=== PATIENT | male | born 1970 | race Caucasian/White ===

== ENCOUNTER → 2017-08-01 10:22 | Outpatient (CLI) | payer OTHER, SELFPAY ==
[2017-08-01 11:02] LABS: Add Manual Diff / Slide Review NO; Eosinophils Percent Auto 5.8 % (2-4); Hemoglobin 15.7 g/dL (13.5-17.5); Lymphocytes Percent Auto 26.9 % (25-40); Mean Corpuscular HGB Conc 34.1 % (30-36); Mean Corpuscular Hemoglobin 30.3 PG (26-34); Mean Corpuscular Volume 88.9 fL (80-100); Monocytes Percent Auto 7.7 % (3-14); Neutrophils Absolute Auto 5300 /uL (3000-5900); Neutrophils Percent Auto 58.6 % (50-75); Platelet Count 310 X10^3/uL (150-400); Red Blood Cell Count 5.18 X10^6/uL (4.5-5.9); Red Cell Distribution Width 13.5 % (11.6-14.8); White Blood Cell Count 9.1 X10^3/uL (4.5-11.0)
[2017-08-01 11:41] LABS: Creatinine Urine Random 141.1 mg/dL
[2017-08-01 11:43] LABS: Alanine Aminotransferase 30 IU/L (21-72); Albumin 4.2 g/dL (3.5-5.0); Albumin Globulin Ratio 1.2 (1.0-2.8); Alkaline Phosphatase 138 U/L (38-126); Aspartate Aminotransferase 21 IU/L (17-59); BUN Creatinine Ratio 17.5 (6-22); Bilirubin Total 0.5 mg/dL (0.2-1.3); Blood Urea Nitrogen 14 mg/dL (9-20); Calcium 9.6 mg/dL (8.4-10.2); Carbon Dioxide 28 mmol/L (22-32); Chloride 101 mmol/L (98-107); Cholesterol 223 mg/dL (140-199); Estimated Glomerular Filt Rate > 60.0 mL/min (>60); Globulin 3.6 g/dL (1.7-4.1); Glucose 116 mg/dL (70-100); HDL Cholesterol 29 mg/dL (40-60); HEMOLYSIS < 15 (0-50); LDL Cholesterol Calculated 121 mg/dL (<100); Potassium 4.7 mmol/L (3.4-5.1); Sodium 143 mmol/L (137-145); Total Protein 7.8 g/dL (6.3-8.2); Triglycerides 364 mg/dL (35-150)
[2017-08-01 11:46] LABS: Microalbumi Creatinin Ratio Ur 6.3 ug/mg CR (<30); Microalbumin Urine Random 0.9 mg/dL (0-1.6)
== END ==
PROVIDERS: PCP Family Medicine; Visit Provider Nurse Practitioner Family
DX: I10 Essential (primary) hypertension (principal)
CPT/HCPCS: 36415; 80053; 80061; 82043; 82570; 85025

== ENCOUNTER 2018-03-30 12:53 | Emergency (ER) | payer OTHER, SELFPAY ==
[2018-03-30 12:55] VITALS: BP 176/109; PULSE 88; RESP 14; TEMP 36.2; O2SAT 98
[2018-03-30 13:02] VITALS: PULSE 88
--- NOTE | 2018-03-30 13:03 | ED.LOWEXIN ---
HPI - Extremity Injury (Lower) <Shahla Ferrrea PA-C - Last Filed: 03/30/18 21:33> General Chief Complaint: Extremity Injury, Lower Stated Complaint: LEFT ANKLE INJURY Time Seen by Provider: 03/30/18 12:58 Source: patient Mode of arrival: ambulatory Limitations: no limitations History of Present Illness HPI Narrative: this 48-year-old male slipped and fell on the ice while he was working last night. He states that he twisted his left ankle sideways and fell onto his left side, also hitting his wrist. He denies any other injury, head contusion or LOC. States he fell hard, and though able to bear weight having significant pain with walking today. He states his wrist is sore but not as much as the ankle. He has not taken any medicines at home, thought he should have this evaluated since not better today. Related Data Previous Rx's Medication Instructions Recorded albuterol sulfate HFA 90 2 puff INHALATION Q4HP PRN #1 gm 11/06/17 mcg/actuation aerosol inhaler budesonide-formoterol HFA 160 2 puff INHALATION BID #10.2 gram 11/06/17 mcg-4.5 mcg/actuation aerosol inhaler lisinopril 10 mg tablet 10 mg PO DAILY #30 tab 11/06/17 hydrocortisone 2.5 % topical cream 1 applictn TOP BID #30 gram 11/28/17 Allergies Allergy/AdvReac Type Severity Reaction Status Date / Time tomato [TOMATO] Allergy Intermediate Verified 11/28/17 10:20 NUTS Allergy Intermediate Uncoded 11/28/17 10:20 Review of Systems <Shahla Ferrera PA-C - Last Filed: 03/30/18 21:33> Review of Systems ROS Unobtainable: All systems reviewed & are unremarkable except as noted in HPI and below PFSH <Shahla Ferrera PA-C - Last Filed: 03/30/18 21:33> Medical History Mild persistent asthma without complication (05/06/15) Essential hypertension with goal blood pressure less than 140/90 (05/06/15) Surgical History No pertinent past surgical history (Chronic) Social History Smoking Status: Never smoker alcohol intake: current (Occasional) Social History Smoking Status: Never smoker alcohol intake: current (Occasional) Exam <Shahla Ferrera PA-C - Last Filed: 03/30/18 21:33> Narrative Exam Narrative: GENERAL APPEARANCE: Patient sitting comfortably, in no distress. LUNGS: Clear to auscultation bilaterally. HEART: Rate and rhythm regular without murmur, normal S1 and S2, no S3 or S4. MUSCULOSKELETAL : left hand and wrist no effusion. No tenderness over the elbow, forearm, hand or fingers where he has full active range of motion. Mild tenderness over the lateral wrist joint. Left ankle there is trace effusion. Mild tenderness over the Achilles which is intact by palpation. Most tender over the anterior lateral ankle just anterior to the lateral malleolus. No point tenderness elsewhere. Full range of motion nonweightbearing with tenderness at endpoints. No tenderness over the metatarsals or toes. Normal plantar flexion and dorsiflexion of the toes with strength intact against resistance NEUROVASCULAR: Fingers and toes are warm and pink with brisk cap refill, sensation is grossly intact throughout the left upper and lower extremities Initial Vital Signs Initial Vital Signs: Vital Signs Temperature 97.2 F L 03/30/18 12:55 Pulse Rate 88 03/30/18 12:55 Respiratory Rate 14 03/30/18 12:55 Blood Pressure 176/109 H 03/30/18 12:55 Pulse Oximetry 98 03/30/18 12:55 <Laura Warren DO - Last Filed: 03/31/18 07:24> Initial Vital Signs Initial Vital Signs: Vital Signs Temperature 97.2 F L 03/30/18 12:55 Pulse Rate 88 03/30/18 12:55 Respiratory Rate 14 03/30/18 12:55 Blood Pressure 176/109 H 03/30/18 12:55 Pulse Oximetry 98 03/30/18 12:55 Course <Shahla Ferrera PA-C - Last Filed: 03/30/18 21:33> Orders Ordered: ED Orders 03/30/18 13:02 XR ankle LT min 3V Stat XR wrist LT 2V Stat Vital Signs - 8 hr 03/30/18 14:06 Pulse Rate 86 Respiratory Rate 16 Blood Pressure [Left Arm] 156/96 H Pulse Oximetry 99 <Laura Warren DO - Last Filed: 03/31/18 07:24> Orders Ordered: ED Orders 03/30/18 13:02 XR ankle LT min 3V Stat XR wrist LT 2V Stat Vital Signs - 8 hr 03/30/18 14:06 Pulse Rate 86 Respiratory Rate 16 Blood Pressure [Left Arm] 156/96 H Pulse Oximetry 99 MDM - Extremity Injury (Lower) <Shahla Ferrera PA-C - Last Filed: 03/30/18 21:33> Imaging Data wrist: Radiologist's impression: [address] [address] XRay Report Signed Patient: Nicholas White [facility]#: [id number] : 1970Acct:[id number] Age/Sex: 48 / MDate of Service: 03/30/18 Loc: ED Accession Number: [id number] Procedure: XR wrist LT 2V Ordering Provider: Shahla Ferrera P.A-C PROCEDURE: XR WRIST LT 2V INDICATIONS: fall on wrist last night. TECHNIQUE: 2 views of the wrist were acquired. COMPARISON: None. FINDINGS: Bones: No fractures or dislocations. No suspicious bony lesions. Soft tissues: No suspicious soft tissue calcifications. IMPRESSION: No fracture Dictated by: Young Freitas M.D. on 03/30/2018 at 13:37 Approved by: Young Freitas M.D. on 03/30/2018 at 13:38 ankle: Radiologist's impression: [address] [address] XRay Report Signed Patient: Nicholas White [facility]#: [id number] : 1970Acct:[id number] Age/Sex: 48 / MDate of Service: 03/30/18 Loc: ED Accession Number: [id number] Procedure: XR ankle LT min 3V Ordering Provider: Shahla Ferrera P.A-C PROCEDURE: XR ANKLE LT MIN 3V INDICATIONS: fall on ice last night. TECHNIQUE: 3 views of the ankle were acquired. COMPARISON: [facility], , ANKLE 3 VIEWS LEFT, 01/21/2011, 16:53. FINDINGS: Bones: No fractures or dislocations. Ankle mortise is normally aligned. No suspicious bony lesions. Plantar calcaneal spur. Chronic corticated ossicle projects at the lateral malleolar tip unchanged since 2010. Soft tissues: No tibiotalar joint effusion. Achilles tendon appears normal. IMPRESSION: No fracture Dictated by: Young Freitas M.D. on 03/30/2018 at 13:36 Approved by: Young Freitas M.D. on 03/30/2018 at 13:37 Discharge Plan Departure Patient Disposition: Home Clinical Impression: Left wrist sprain Qualifiers: Encounter type: initial encounter Qualified Code(s): S63.502A - Unspecified sprain of left wrist, initial encounter Left ankle sprain Qualifiers: Encounter type: initial encounter Involved ligament of ankle: unspecified ligament Qualified Code(s): S93.402A - Sprain of unspecified ligament of left ankle, initial encounter Discharge Date/Time: 03/30/18 14:30 Interventions: ED Discharge Assessment Last Done: 03/30/18 14:30 Instructions: DI for Wrist Sprain, DI for Ankle Sprain Activity Restrictions/Additional Instructions: Please take 1 Aleve twice daily to help with pain and swelling, or you can also use ibuprofen 400 mg every 8 hr. You can add Tylenol as needed. Please use the ankle splint whenever you are weight-bearing. Gentle walking is okay, but do not overuse for long periods. Return if you have any acutely worsening symptoms, otherwise you should follow-up with your PCP next week to reassess your progress as you may need further treatment, i.e. physical therapy, or you may need repeat x-rays if not getting better. 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 Prescriptions: No Action albuterol sulfate [Proventil HFA] 90 mcg/actuation HFA aerosol inhaler 2 puff INHALATION Q4HP PRN (Reason: shortness of breath or wheezing) Qty: 1 RF: 6 budesonide-formoterol [Symbicort] 160-4.5 mcg/actuation HFA aerosol inhaler 2 puff INHALATION BID Qty: 10.2 RF: 0 lisinopril 10 mg tablet 10 mg PO DAILY Qty: 30 RF: 0 hydrocortisone 2.5 % cream 1 applictn TOP BID Qty: 30 RF: 0 Referrals: Jorge Lunsford MD [Primary Care Provider] - Stand Alone Forms: Work Release Note <Laura Warren DO - Last Filed: 03/31/18 07:24> Cosign ED Attending Cosignature Attestation: I was immediately available in the department for consultation. This documentation has been reviewed and I agree with assessment and plan. Supervised by Laura Warren DO
[2018-03-30 13:06] VITALS: PULSE 88
--- NOTE | 2018-03-30 13:07 | PC.NURSE ---
Left wrist w/o s/s of trauma at this time.
--- NOTE | 2018-03-30 13:17 | ED_ITS ---
HPI - Extremity Injury (Lower) <Shahla Ferrera PA-C - Last Filed: 03/30/18 21:33> General Chief Complaint: Extremity Injury, Lower Stated Complaint: LEFT ANKLE INJURY Time Seen by Provider: 03/30/18 12:58 Source: patient Mode of arrival: ambulatory Limitations: no limitations History of Present Illness HPI Narrative: this 48-year-old male slipped and fell on the ice while he was working last night. He states that he twisted his left ankle sideways and fell onto his left side, also hitting his wrist. He denies any other injury, head contusion or LOC. States he fell hard, and though able to bear weight having significant pain with walking today. He states his wrist is sore but not as much as the ankle. He has not taken any medicines at home, thought he should have this evaluated since not better today. Related Data Previous Rx's Medication Instructions Recorded albuterol sulfate HFA 90 2 puff INHALATION Q4HP PRN #1 gm 11/06/17 mcg/actuation aerosol inhaler budesonide-formoterol HFA 160 2 puff INHALATION BID #10.2 gram 11/06/17 mcg-4.5 mcg/actuation aerosol inhaler lisinopril 10 mg tablet 10 mg PO DAILY #30 tab 11/06/17 hydrocortisone 2.5 % topical cream 1 applictn TOP BID #30 gram 11/28/17 Allergies Allergy/AdvReac Type Severity Reaction Status Date / Time tomato [TOMATO] Allergy Intermediate Verified 11/28/17 10:20 NUTS Allergy Intermediate Uncoded 11/28/17 10:20 Review of Systems <Shahla Ferrera PA-C - Last Filed: 03/30/18 21:33> Review of Systems ROS Unobtainable: All systems reviewed & are unremarkable except as noted in HPI and below PFSH <Shahla Ferrera PA-C - Last Filed: 03/30/18 21:33> Medical History Mild persistent asthma without complication (05/06/15) Essential hypertension with goal blood pressure less than 140/90 (05/06/15) Surgical History No pertinent past surgical history (Chronic) Social History Smoking Status: Never smoker alcohol intake: current (Occasional) Social History Smoking Status: Never smoker alcohol intake: current (Occasional) Exam <Shahla Ferrera PA-C - Last Filed: 03/30/18 21:33> Narrative Exam Narrative: GENERAL APPEARANCE: Patient sitting comfortably, in no distress. LUNGS: Clear to auscultation bilaterally. HEART: Rate and rhythm regular without murmur, normal S1 and S2, no S3 or S4. MUSCULOSKELETAL : left hand and wrist no effusion. No tenderness over the elbow, forearm, hand or fingers where he has full active range of motion. Mild tenderness over the lateral wrist joint. Left ankle there is trace effusion. Mild tenderness over the Achilles which is intact by palpation. Most tender over the anterior lateral ankle just anterior to the lateral malleolus. No point tenderness elsewhere. Full range of motion nonweightbearing with tenderness at endpoints. No tenderness over the metatarsals or toes. Normal plantar flexion and dorsiflexion of the toes with strength intact against resistance NEUROVASCULAR: Fingers and toes are warm and pink with brisk cap refill, sensation is grossly intact throughout the left upper and lower extremities Initial Vital Signs Initial Vital Signs: Vital Signs Temperature 97.2 F L 03/30/18 12:55 Pulse Rate 88 03/30/18 12:55 Respiratory Rate 14 03/30/18 12:55 Blood Pressure 176/109 H 03/30/18 12:55 Pulse Oximetry 98 03/30/18 12:55 <Laura Warren DO - Last Filed: 03/31/18 07:24> Initial Vital Signs Initial Vital Signs: Vital Signs Temperature 97.2 F L 03/30/18 12:55 Pulse Rate 88 03/30/18 12:55 Respiratory Rate 14 03/30/18 12:55 Blood Pressure 176/109 H 03/30/18 12:55 Pulse Oximetry 98 03/30/18 12:55 Course <Shahla Ferrera PA-C - Last Filed: 03/30/18 21:33> Orders Ordered: ED Orders 03/30/18 13:02 XR ankle LT min 3V Stat XR wrist LT 2V Stat Vital Signs - 8 hr 03/30/18 14:06 Pulse Rate 86 Respiratory Rate 16 Blood Pressure [Left Arm] 156/96 H Pulse Oximetry 99 <Laura Warren DO - Last Filed: 03/31/18 07:24> Orders Ordered: ED Orders 03/30/18 13:02 XR ankle LT min 3V Stat XR wrist LT 2V Stat Vital Signs - 8 hr 03/30/18 14:06 Pulse Rate 86 Respiratory Rate 16 Blood Pressure [Left Arm] 156/96 H Pulse Oximetry 99 MDM - Extremity Injury (Lower) <Shahla Ferrera PA-C - Last Filed: 03/30/18 21:33> Imaging Data wrist: Radiologist's impression: [address] [address] XRay Report Signed Patient: Nicholas White [facility]#: [id number] : 1970Acct:[id number] Age/Sex: 48 / MDate of Service: 03/30/18 Loc: ED Accession Number: [id number] Procedure: XR wrist LT 2V Ordering Provider: Shahla Ferrera P.A-C PROCEDURE: XR WRIST LT 2V INDICATIONS: fall on wrist last night. TECHNIQUE: 2 views of the wrist were acquired. COMPARISON: None. FINDINGS: Bones: No fractures or dislocations. No suspicious bony lesions. Soft tissues: No suspicious soft tissue calcifications. IMPRESSION: No fracture Dictated by: Young Freitas M.D. on 03/30/2018 at 13:37 Approved by: Young Freitas M.D. on 03/30/2018 at 13:38 ankle: Radiologist's impression: [address] [address] XRay Report Signed Patient: Nicholas White [facility]#: [id number] : 1970Acct:[id number] Age/Sex: 48 / MDate of Service: 03/30/18 Loc: ED Accession Number: [id number] Procedure: XR ankle LT min 3V Ordering Provider: Shahla Ferrera P.A-C PROCEDURE: XR ANKLE LT MIN 3V INDICATIONS: fall on ice last night. TECHNIQUE: 3 views of the ankle were acquired. COMPARISON: [facility], , ANKLE 3 VIEWS LEFT, 01/21/2011, 16:53. FINDINGS: Bones: No fractures or dislocations. Ankle mortise is normally aligned. No suspicious bony lesions. Plantar calcaneal spur. Chronic corticated ossicle projects at the lateral malleolar tip unchanged since 2010. Soft tissues: No tibiotalar joint effusion. Achilles tendon appears normal. IMPRESSION: No fracture Dictated by: Young Freitas M.D. on 03/30/2018 at 13:36 Approved by: Young Freitas M.D. on 03/30/2018 at 13:37 Discharge Plan Departure Patient Disposition: Home Clinical Impression: Left wrist sprain Qualifiers: Encounter type: initial encounter Qualified Code(s): S63.502A - Unspecified sprain of left wrist, initial encounter Left ankle sprain Qualifiers: Encounter type: initial encounter Involved ligament of ankle: unspecified ligament Qualified Code(s): S93.402A - Sprain of unspecified ligament of left ankle, initial encounter Discharge Date/Time: 03/30/18 14:30 Interventions: ED Discharge Assessment Last Done: 03/30/18 14:30 Instructions: DI for Wrist Sprain, DI for Ankle Sprain Activity Restrictions/Additional Instructions: Please take 1 Aleve twice daily to help with pain and swelling, or you can also use ibuprofen 400 mg every 8 hr. You can add Tylenol as needed. Please use the ankle splint whenever you are weight-bearing. Gentle walking is okay, but do not overuse for long periods. Return if you have any acutely worsening symptoms, otherwise you should follow-up with your PCP next week to reassess your progress as you may need further treatment, i.e. physical therapy, or you may need repeat x-rays if not getting better. 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 Prescriptions: No Action albuterol sulfate [Proventil HFA] 90 mcg/actuation HFA aerosol inhaler 2 puff INHALATION Q4HP PRN (Reason: shortness of breath or wheezing) Qty: 1 R F: 6 budesonide-formoterol [Symbicort] 160-4.5 mcg/actuation HFA aerosol inhaler 2 puff INHALATION BID Qty: 10.2 RF: 0 lisinopril 10 mg tablet 10 mg PO DAILY Qty: 30 RF: 0 hydrocortisone 2.5 % cream 1 applictn TOP BID Qty: 30 RF: 0 Referrals: Jorge Lunsford MD [Primary Care Provider] - Stand Alone Forms: Work Release Note <Laura Warren DO - Last Filed: 03/31/18 07:24> Cosign ED Attending Cosignature Attestation: I was immediately available in the department for consultation. This documentation has been reviewed and I agree with assessment and plan. Supervised by Laura Warren DO
[2018-03-30 14:06] VITALS: BP 156/96; PULSE 86; RESP 16; O2SAT 99
--- NOTE | 2018-03-30 14:06 | PC.NURSE ---
pt report, with partial wt bearings. fell and rolled last night.
== END 2018-03-30 14:30 | disposition home or self-care (01) ==
PROVIDERS: Emergency Provider Internal Medicine; PCP Student in an Organized Health Care Education/Training Program
DX: S63.502A Unspecified sprain of left wrist, initial encounter (principal); S93.402A Sprain of unspecified ligament of left ankle, initial encounter; W01.0XXA Fall on same level from slipping, tripping and stumbling without subsequent striking against object, initial encounter; Y99.0 Civilian activity done for income or pay
CPT/HCPCS: 29540; 73100; 73610; 99282; 99283

== ENCOUNTER 2018-04-17 10:42 | Emergency (ER) | payer OTHER, SELFPAY ==
[2018-04-17 10:47] VITALS: BP 171/103; PULSE 72; RESP 20; TEMP 36.4; O2SAT 98
--- NOTE | 2018-04-17 11:30 | ED_ITS ---
HPI - Extremity Injury (Lower) General Chief Complaint: Extremity Injury, Lower Stated Complaint: SWELLING ON L FOOT,DISCOLORATION,TWINGES Time Seen by Provider: 04/17/18 11:11 Source: patient Mode of arrival: ambulatory Limitations: no limitations History of Present Illness HPI Narrative: Patient is a 48-year-old male presenting with left ankle pain. He said he slipped on the ice on 03/29/2017. He has an x-ray at that time however he continues to have swelling now has some numbness and tingling. He was wearing an air splint but he says that was actually very uncomfortable. He can continue to ice it. He has not noticed much improvement. Onset (ago): day(s) () Place: work Treatments prior to arrival: cold therapy Related Data Home Medications Medication Instructions Recorded Confirmed albuterol sulfate [ProAir HFA] 2 puff INHALATION Q4H PRN 04/17/18 04/17/18 Previous Rx's Medication Instructions Recorded budesonide-formoterol HFA 160 2 puff INHALATION BID #10.2 gram 11/06/17 mcg-4.5 mcg/actuation aerosol inhaler lisinopril 10 mg tablet 10 mg PO DAILY #30 tab 11/06/17 Allergies Allergy/AdvReac Type Severity Reaction Status Date / Time tomato [TOMATO] Allergy Intermediate Verified 11/28/17 10:20 NUTS Allergy Intermediate Uncoded 11/28/17 10:20 Review of Systems Review of Systems GENERAL: Denies chills,fever HEENT: Denies throat pain RESPIRATORY: Denies dyspnea, cough, wheezing CARDIOVASCULAR: Denies chest pain, palpitations GASTROINTESTINAL: Denies nausea, vomiting MUSCULOSKELETAL: See HPI SKIN: No rash, no laceration, no pruritus NEUROLOGIC: Denies weakness, dizziness, headache, numbness 8 point review of systems is negative except for those stated above and HPI PFSH Medical History Mild persistent asthma without complication (05/06/15) Essential hypertension with goal blood pressure less than 140/90 (05/06/15) Surgical History No pertinent past surgical history (Chronic) Social History Smoking Status: Never smoker alcohol intake: current (Occasional) Social History Smoking Status: Never smoker alcohol intake: current (Occasional) Exam Initial Vital Signs Initial Vital Signs: Vital Signs Temperature 97.6 F 04/17/18 10:47 Pulse Rate 72 04/17/18 10:47 Respiratory Rate 20 04/17/18 10:47 Blood Pressure 171/103 H 04/17/18 10:47 Pulse Oximetry 98 04/17/18 10:47 GENERAL: Well-appearing male in no acute distress CARDIOVASCULAR: peripheral pulses in tact, cap refill <2 sec RESPIRATORY: No respiratory distress, speaks in full sentences without dif ficulty EXTREMITIES: Normal range of motion, no clubbing or edema. Neurovascularly intact left ankle: Swelling noted pain with Burris and plantar flexion. Distal pedal pulses intact. No gross bony deformities. NEUROLOGICAL: Cranial nerves II through XII grossly intact. Normal gait and speech. SKIN: Warm, dry, no petechiae, no rashes or lesions. Course Orders Ordered: ED Orders 04/17/18 11:38 XR ankle LT min 3V Stat Vital Signs - 8 hr 04/17/18 10:47 04/17/18 13:54 Temperature 97.6 F Pulse Rate 72 75 Respiratory Rate 20 17 Blood Pressure 171/103 H Blood Pressure [Left Arm] 166/102 H Pulse Oximetry 98 99 MDM - Extremity Injury (Lower) Imaging Data left ankle XR: Radiologist's impression: PROCEDURE: XR ANKLE LT MIN 3V INDICATIONS: persistant pain injury 03/29 TECHNIQUE: 3 views of the ankle were acquired. COMPARISON: [facility], , ANKLE 3 VIEWS LEFT, 01/21/2011, 16:53. [facility], , XR ANKLE LT MIN 3V, 03/30/2018, 13:14. FINDINGS: Bones: There is a tiny bony right inferior to the medial malleolus which can potentially represents an avulsion off the talus. This is not definite. There is medial and lateral soft tissue swelling. No other fractures or dislocations. Soft tissues: No tibiotalar joint effusion. Achilles tendon appears normal. IMPRESSION: Question tiny avulsion off the talus. Medial and lateral ankle sprain. Dictated by: Giovanni Jackson M.D. on 04/17/2018 at 12:01 MDM Narrative Medical decision making narrative: I Did discuss case briefly with Dr. [facility] on-call. Her agrees with walking boot follow-up out patient. May weight bear as tolerated. Discharge Plan Departure Patient Disposition: Home Clinical Impression: Avulsion fracture of talus Qualifiers: Encounter type: initial encounter Fracture type: closed Fracture alignment: nondisplaced Laterality: left Qualified Code(s): S92.155A - Nondisplaced avulsion fracture (chip fracture) of left talus, initial encounter for closed fracture Discharge Date/Time: 04/17/18 13:58 Interventions: ED Discharge Assessment Last Done: 04/17/18 13:58 Instructions: DI for Fracture Activity Restrictions/Additional Instructions: *You have been diagnosed with avulsion fracture of talus *What to do: wear walking boot Elevate, ice. Follow-up with Orthopedics. I anticipate this will heal without difficulty.May require outpatient MRI as scheduled with her primary care provider. *Continue to take medications as directed Ibuprofen 600 mg every 6-8 hours if needed for pain or swelling for 1 week *Follow up with your primary care provider in 2-3 days *Return to ER if you should have numbness, tingling orany new, worsening or concerning symptoms Prescriptions: No Action budesonide-formoterol [Symbicort] 160-4.5 mcg/actuation HFA aerosol inhaler 2 puff INHALATION BID Qty: 10.2 RF: 0 lisinopril 10 mg tablet 10 mg PO DAILY Qty: 30 RF: 0 ProAir HFA 90 mcg/actuation HFA aerosol inhaler 2 puff Inhalation Q4H PRN (Reason: Shortness Of Breath Or Wheezing) RF: 0 Referrals: [facility] [Outside]
--- NOTE | 2018-04-17 11:38 | DI.RAD.S_ITS ---
PROCEDURE: XR ANKLE LT MIN 3V INDICATIONS: persistant pain injury 03/29 TECHNIQUE: 3 views of the ankle were acquired. COMPARISON: [facility], CR, ANKLE 3 VIEWS LEFT, 01/21/2011, 16:53. [facility], CR, XR ANKLE LT MIN 3V, 03/30/2018, 13:14. FINDINGS: Bones: There is a tiny bony right inferior to the medial malleolus which can potentially represents an avulsion off the talus. This is not definite. There is medial and lateral soft tissue swelling. No other fractures or dislocations. Soft tissues: No tibiotalar joint effusion. Achilles tendon appears normal. IMPRESSION: Question tiny avulsion off the talus. Medial and lateral ankle sprain. Dictated by: Giovanni Jackson M.D. on 04/17/2018 at 12:01 Approved by: Giovanni Jackson M.D. on 04/17/2018 at 12:24
[2018-04-17 13:54] VITALS: BP 166/102; PULSE 75; RESP 17; O2SAT 99
== END 2018-04-17 13:58 | disposition home or self-care (01) ==
PROVIDERS: Emergency Provider Emergency Medicine
DX: S92.155A Nondisplaced avulsion fracture (chip fracture) of left talus, initial encounter for closed fracture (principal); W01.0XXA Fall on same level from slipping, tripping and stumbling without subsequent striking against object, initial encounter
CPT/HCPCS: 29580; 73610; 99282; 99283

== ENCOUNTER 2018-08-05 20:25 | Emergency (ER) | payer OTHER, SELFPAY ==
[2018-08-05 20:50] VITALS: BP 193/106; PULSE 82; RESP 18; TEMP 36.9; O2SAT 98; BMI 42.3
--- NOTE | 2018-08-05 20:57 | DI.RAD.S_ITS ---
PROCEDURE: XR RIBS LT MIN 3V W CXR1V INDICATIONS: Posterior rib pain TECHNIQUE: 2 views of the left ribs were acquired, along with a single view chest. COMPARISON: None. FINDINGS: Surgical changes and devices: None. Bones and chest wall: No fractures or dislocations. No suspicious bony lesions. Overlying soft tissues appear unremarkable. Lungs and pleura: No pleural effusions or pneumothorax. Lungs appear clear. Mediastinum: Mediastinal contours appear normal. Heart size is normal. IMPRESSION: No rib fracture identified. No acute cardiopulmonary disease. Dictated by: Young Freitas M.D. on 08/05/2018 at 21:46 Approved by: Young Freitas M.D. on 08/05/2018 at 21:48
--- NOTE | 2018-08-05 21:17 | ED.BACK ---
HPI - Back Pain/Injury General Chief Complaint: Back Pain/Injury Stated Complaint: BACK PAIN Time Seen by Provider: 08/05/18 21:13 Source: patient Mode of arrival: ambulatory Limitations: no limitations History of Present Illness HPI Narrative: 48-year-old male here for evaluation of left-sided thoracic back pain. Patient states that it started within the past day or so. Has never had pain like this in the past. States that he was moving some heavy objects every does not remember a specific incident where the symptoms started. No fevers. States that it does hurt to the point of causing him to be somewhat short of breath. It is reproducible with touching and movement. He states that it does feel similar to when he had a rib fracture on the left side in the past. Related Data Home Medications Medication Instructions Recorded Confirmed albuterol sulfate [ProAir HFA] 2 puff INHALATION Q4H PRN 04/17/18 04/17/18 Previous Rx's Medication Instructions Recorded budesonide-formoterol HFA 160 2 puff INHALATION BID #10.2 gram 11/06/17 mcg-4.5 mcg/actuation aerosol inhaler lisinopril 10 mg tablet 10 mg PO DAILY #30 tab 11/06/17 cyclobenzaprine 10 mg PO TID PRN #12 tab 08/05/18 lisinopril 10 mg PO DAILY #30 tab 08/05/18 Allergies Allergy/AdvReac Type Severity Reaction Status Date / Time tomato [TOMATO] Allergy Intermediate Verified 11/28/17 10:20 NUTS Allergy Intermediate Uncoded 11/28/17 10:20 Review of Systems Constitutional Denies fever(s) Cardiovascular Denies chest pain Respiratory Reports pain on inspiration Gastrointestinal Gastrointestinal: Denies abdominal pain Musculoskeletal Reports back pain, Denies atrophy and Denies arthralgias Integumentary/Breasts Denies rash Hematologic/Lymphatic Denies easy bleeding and Denies easy bruising [facility] Medical History Mild persistent asthma without complication (05/06/15) Essential hypertension with goal blood pressure less than 140/90 (05/06/15) Surgical History (Updated 03/30/18 @ 13:15 by Shahla Ferrera PA-C) No pertinent past surgical history (Chronic) Social History Smoking Status: Never smoker alcohol intake: current (Occasional) Social History Smoking Status: Never smoker alcohol intake: current (Occasional) Exam Initial Vital Signs Initial Vital Signs: Vital Signs Temperature 98.4 F 08/05/18 20:50 Pulse Rate 82 08/05/18 20:50 Respiratory Rate 18 08/05/18 20:50 Blood Pressure 193/106 H 08/05/18 20:50 Pulse Oximetry 98 08/05/18 20:50 Const General: cooperative, well developed, well groomed and No acute distress Orientation: alert and awake HENPR Head: normal to inspection and normocephalic Resp Effort & Inspection: normal respiratory effort Auscultation: clear to auscultation bilaterally Cardio Rate: regular rate Rhythm: regular rhythm Back/Spine/Pelvis Cervical Spine: No cervical spinal tenderness Thoracic/Lumbar Spine: paraspinal tenderness (Left-sided), thoraco-lumbar spasm (Left sign), No thoracic spinal tenderness and No lumbar spinal tenderness Skin Lesions: no lesions Rashes: no rashes Neuro General: alert and awake Cognition: normal cognition Speech: speech normal Gait: normal gait Motor: muscle tone normal throughout Sensory Exam: no sensory deficits noted Extrem General: normal to inspection and capillary refill normal Psych Appearance: grossly normal and well kempt Scores GCS Melquiades coma scale eye opening: Spontaneous [place] coma scale verbal response: Orientated Melquiades coma scale motor response: Obey commands Melquiades coma scale total score: 15 Course Orders Ordered: ED Orders 08/05/18 20:57 XR ribs LT min 3V w CXR1V Stat Discontinued Medications Cyclobenzaprine HCl (Flexeril 10 Mg Prepack) 1 bottle MISC SEEINSTR ONE Stop: 08/05/18 21:55 Last Admin: 08/05/18 22:06 Dose: 1 bottle Ketorolac Tromethamine (Toradol) 30 mg IM NOW ONE Stop: 08/05/18 21:19 Last Admin: 08/05/18 21:47 Dose: 30 mg Vital Signs - 8 hr 08/05/18 20:50 08/05/18 22:03 Temperature 98.4 F Pulse Rate 82 82 Respiratory Rate 18 18 Blood Pressure 193/106 H 192/114 H Pulse Oximetry 98 99 MDM - Back Pain/Injury Imaging Data X-ray ribs: Radiologist's impression: [address] [address] XRay Report Signed Patient: Nicholas White [facility]#: [id number] : 1970Acct:[id number] Age/Sex: 48 / MDate of Service: 08/05/18 Loc: ED Accession Number: [id number] Procedure: XR ribs LT min 3V w CXR1V Ordering Provider: Abe Gómez D.O. PROCEDURE: XR RIBS LT MIN 3V W CXR1V INDICATIONS: Posterior rib pain TECHNIQUE: 2 views of the left ribs were acquired, along with a single view chest. COMPARISON: None. FINDINGS: Surgical changes and devices: None. Bones and chest wall: No fractures or dislocations. No suspicious bony lesions. Overlying soft tissues appear unremarkable. Lungs and pleura: No pleural effusions or pneumothorax. Lungs appear clear. Mediastinum: Mediastinal contours appear normal. Heart size is normal. IMPRESSION: No rib fracture identified. No acute cardiopulmonary disease. Dictated by: Young Freitas M.D. on 08/05/2018 at 21:46 Approved by: Young Freitas M.D. on 08/05/2018 at 21:48 MDM Narrative Medical decision making narrative: Fractures on the x-ray. He does have left-sided paraspinal tenderness in the thoracic area. He is not short of breath. It is reproducible with palpation. Low suspicion for PE or ACS. Do suspect musculoskeletal etiology. He was given Toradol here in the emergency department. We did discuss the use of muscle relaxers. He was given return precautions and follow-up instructions. He expressed understanding and agreement with plan. Discharge Plan Departure Patient Disposition: Home Clinical Impression: Thoracic back pain Qualifiers: Chronicity: acute Back pain laterality: left Qualified Code(s): M54.6 - Pain in thoracic spine Discharge Date/Time: 08/05/18 22:03 Interventions: ED Discharge Assessment Last Done: 08/05/18 22:03 Instructions: DI for Back Strain or Sprain Activity Restrictions/Additional Instructions: Recommend you do not take any anti-inflammatories until tomorrow afternoon. Take the other medications as directed. You can also use heat and massage and light stretching. Contact your primary provider for follow-up. Return to the emergency department for any new or worsening symptoms Prescriptions: New cyclobenzaprine 10 mg tablet 10 mg PO TID PRN (Reason: muscle spasm) Qty: 12 RF: 0 lisinopril 10 mg tablet 10 mg PO DAILY Qty: 30 RF: 0 No Action budesonide-formoterol [Symbicort] 160-4.5 mcg/actuation HFA aerosol inhaler 2 puff INHALATION BID Qty: 10.2 RF: 0 lisinopril 10 mg tablet 10 mg PO DAILY Qty: 30 RF: 0 ProAir HFA 90 mcg/actuation HFA aerosol inhaler 2 puff Inhalation Q4H PRN (Reason: Shortness Of Breath Or Wheezing) RF: 0
[2018-08-05] MEDS: KETOROLAC 60 MG/2 ML VIAL 30 MG IM (21:47)
[2018-08-05 22:03] VITALS: BP 192/114; PULSE 82; RESP 18; O2SAT 99
[2018-08-05] MEDS: CYCLOBENZAPRINE 10 MG PREPACK 1 BOTTLE MISC (22:06)
== END 2018-08-05 22:03 | disposition home or self-care (01) ==
PROVIDERS: Emergency Provider Emergency Medicine
DX: M54.6 Pain in thoracic spine (principal)
CPT/HCPCS: 71101; 96372; 99282; 99283; J1885

== ENCOUNTER 2019-04-30 13:22 | Emergency (ER) | payer OTHER, SELFPAY ==
[2019-04-30 13:39] VITALS: BP 196/97; PULSE 83; RESP 16; TEMP 36.6; O2SAT 98; BMI 41.1
[2019-04-30 14:11] VITALS: BP 166/106; PULSE 78; RESP 22; O2SAT 98
--- NOTE | 2019-04-30 14:16 | DI.RAD.S_ITS ---
PROCEDURE: XR CHEST 2V INDICATIONS: sob, wheezing TECHNIQUE: 2 views of the chest were acquired. COMPARISON: [facility], , CHEST 1 VIEW, 02/14/2014, 20:39. FINDINGS: Surgical changes and devices: None. Lungs and pleura: Lungs are clear. No pleural effusions or pneumothorax. Mediastinum: Mediastinal contours are normal. Heart size is normal. Bones and chest wall: No suspicious bony abnormalities. Soft tissues appear unremarkable. IMPRESSION: No acute cardiopulmonary pathology. Dictated by: Bao Campbell M.D. on 04/30/2019 at 15:36 Approved by: Bao Campbell M.D. on 04/30/2019 at 15:37
--- NOTE | 2019-04-30 14:30 | ED_ITS ---
HPI - URI/Sore Throat <MARCOS Malone - Last Filed: 04/30/19 16:55> General Chief Complaint: Upper Respiratory Symptoms Stated Complaint: SOB, Congestion Time Seen by Provider: 04/30/19 14:06 Source: patient Mode of arrival: Ambulatory Limitations: no limitations History of Present Illness HPI Narrative: The patient is a 49-year-old male nonsmoker with history of asthma who presents with a chief complaint of shortness of breath for the past 2 days. He states his wheezing is getting worse. He states that he has gone through his albuterol prescription. He denies any fevers nausea vomiting or diarrhea. Denies any abdominal pain. He states that he has tried some neqn-nwz-vkmqgke DayQuil and in addition to his albuterol but he is feeling worse. He denies any smoking, but states he has is exposed to smoke exposure. He denies any sore throat or ear pain. Related Data Home Medications Medication Instructions Recorded Confirmed WA-IP-nintdz/WI-jrbypk-kzelndn 1 cap PO DIRECTED PRN 03/13/19 04/30/19 10-5-325mg(d)/15-325-6.25mg capsules Previous Rx's Medication Instructions Recorded budesonide-formoterol HFA 160 2 puff INHALATION BID #10.2 gram 03/13/19 mcg-4.5 mcg/actuation aerosol inhaler lisinopril 10 mg tablet 15 mg PO DAILY #120 tab 03/13/19 naproxen 500 mg tablet 500 mg PO BID #30 tab 03/13/19 albuterol sulfate 2 puff INHALATION Q4-6H PRN #18 04/30/19 gram ipratropium-albuterol 3 ml INHALATION Q4-6H PRN #15 ml 04/30/19 nebulizer accessories #1 each 04/30/19 nebulizers #1 each 04/30/19 prednisone 50 mg PO DAILY #4 tab 04/30/19 Allergies Allergy/AdvReac Type Severity Reaction Status Date / Time tomato [TOMATO] Allergy Intermediate Verified 04/30/19 13:39 NUTS Allergy Intermediate Uncoded 03/13/19 09:39 Review of Systems <MARCOS Malone - Last Filed: 04/30/19 16:55> Review of Systems Narrative: GENERAL: Denies chills, fatigue, malaise, fever, sweats. HEENT: Denies sinus pain, ear pain, sore throat, difficulty swallowing, dizziness. RESPIRATORY: See HPI CARDIOVASCULAR: Denies chest pain, palpitations, orthopnea, edema, GASTROINTESTINAL: Denies nausea, vomiting, abdominal pain, diarrhea, constipation, melena. : Denies dysuria, frequency, incontinence, hematuria, urinary retention. MUSCULOSKELETAL: denies weakness, joint pain, or bony pain SKIN: Denies rash, skin lesions, or other NEUROLOGIC: Denies weakness, headache, numbness, change in speech, confusion, seizures, incoordination. PSYCHIATRIC: No concerning psychosocial issues. 12 point review of systems is negative except for those stated above Patient History <MARCOS Malone - Last Filed: 04/30/19 16:55> Medical History Essential hypertension with goal blood pressure less than 140/90 (05/06/15) Mild persistent asthma without complication (05/06/15) Moderate persistent asthma (Acute) Surgical History No pertinent past surgical history (Chronic) Social History Smoking Status: Never smoker second hand exposure: Yes (daily at work) alcohol intake: current (Occasional) substance use type: does not use Smoking Status: Never smoker alcohol intake frequency: holidays/special occasions only Substance Use Type: does not use Exam <MARCOS Malone - Last Filed: 04/30/19 16:55> Narrative Exam Narrative: GENERAL: Obese male wearing mask in no acute distress HEAD: Atraumatic. Normocephalic. No temporal or scalp tenderness. EYES: Pupils equal round and reactive. Extraocular motions intact. No scleral icterus. No injection or drainage. ENT: Nose without bleeding, purulent drainage or septal hematoma. Throat without erythema, tonsillar hypertrophy or exudate. Uvula midline. Airway patent. NECK: Trachea midline. No JVD or lymphadenopathy. Supple, nontender, no meningeal signs. CARDIOVASCULAR: Regular rate and rhythm without murmurs, gallops, or rubs. RESPIRATORY: Diffuse expiratory wheezes all islas to auscultation posteriorly. Breath sounds equal bilaterally. No rales, or rhonchi. Speaking full sentences. GASTROINTESTINAL: Abdomen soft, non-tender, nondistended. No hepato-splenome jerzy, or palpable masses. No guarding. Active bowel sounds all 4 quadrants EXTREMITIES: No clubbing, cyanosis, or edema. No joint tenderness, effusion, or edema noted. BACK: Nontender without deformity or crepitance. No flank tenderness. NEURO: AOx3. SKIN: No rash or erythema on visible skin Initial Vital Signs Initial Vital Signs: Vital Signs Temperature 97.9 F 04/30/19 13:39 Pulse Rate 83 04/30/19 13:39 Respiratory Rate 16 04/30/19 13:39 Blood Pressure 196/97 H 04/30/19 13:39 Pulse Oximetry 98 04/30/19 13:39 <Kevin Dowell MD - Last Filed: 05/01/19 07:55> Initial Vital Signs Initial Vital Signs: Vital Signs Temperature 97.9 F 04/30/19 13:39 Pulse Rate 83 04/30/19 13:39 Respiratory Rate 16 04/30/19 13:39 Blood Pressure 196/97 H 04/30/19 13:39 Pulse Oximetry 98 04/30/19 13:39 Course <MARCOS Malone - Last Filed: 04/30/19 16:55> Orders Ordered: Discontinued Medications Albuterol (Ventolin) 2.5 mg INH NOW ONE Stop: 04/30/19 14:17 Last Admin: 04/30/19 14:42 Dose: 2.5 mg Documented by: BFOX Albuterol (Ventolin) 2.5 mg INH NOW ONE Stop: 04/30/19 14:54 Last Admin: 04/30/19 14:59 Dose: 2.5 mg Documented by: BFOX Albuterol/Ipratropium (Duoneb) 3 ml INH NOW ONE Stop: 04/30/19 14:54 Last Admin: 04/30/19 14:59 Dose: 3 ml Documented by: BFOX Albuterol/Ipratropium (Duoneb) 3 ml INH NOW ONE Stop: 04/30/19 16:13 Last Admin: 04/30/19 16:20 Dose: 3 ml Documented by: BFOX Prednisone (Deltasone) 60 mg PO NOW ONE Stop: 04/30/19 15:25 Last Admin: 04/30/19 15:34 Dose: 60 mg Documented by: ROGELIO Vital Signs Vital signs: Vital Signs - 8 hr 04/30/19 13:39 04/30/19 14:11 04/30/19 14:45 Temperature 97.9 F Pulse Rate 83 78 87 Respiratory Rate 16 22 18 Blood Pressure 196/97 H Blood Pressure [Left Arm] 166/106 H Pulse Oximetry 98 98 98 04/30/19 15:00 04/30/19 16:22 Temperature Pulse Rate 78 81 Respiratory Rate 14 14 Blood Pressure Blood Pressure [Left Arm] Pulse Oximetry 96 97 <Kevin Dowell MD - Last Filed: 05/01/19 07:55> Orders Ordered: Discontinued Medications Albuterol (Ventolin) 2.5 mg INH NOW ONE Stop: 04/30/19 14:17 Last Admin: 04/30/19 14:42 Dose: 2.5 mg Documented by: BFOX Albuterol (Ventolin) 2.5 mg INH NOW ONE Stop: 04/30/19 14:54 Last Admin: 04/30/19 14:59 Dose: 2.5 mg Documented by: BFOX Albuterol/Ipratropium (Duoneb) 3 ml INH NOW ONE Stop: 04/30/19 14:54 Last Admin: 04/30/19 14:59 Dose: 3 ml Documented by: BFOX Albuterol/Ipratropium (Duoneb) 3 ml INH NOW ONE Stop: 04/30/19 16:13 Last Admin: 04/30/19 16:20 Dose: 3 ml Documented by: BFOX Prednisone (Deltasone) 60 mg PO NOW ONE Stop: 04/30/19 15:25 Last Admin: 04/30/19 15:34 Dose: 60 mg Documented by: ROGELIO Vital Signs Vital signs: Vital Signs - 8 hr 04/30/19 13:39 04/30/19 14:11 04/30/19 14:45 Temperature 97.9 F Pulse Rate 83 78 87 Respiratory Rate 16 22 18 Blood Pressure 196/97 H Blood Pressure [Left Arm] 166/106 H Pulse Oximetry 98 98 98 04/30/19 15:00 04/30/19 16:22 Temperature Pulse Rate 78 81 Respiratory Rate 14 14 Blood Pressure Blood Pressure [Left Arm] Pulse Oximetry 96 97 [facility] - URI/Sore Throat <MARCOS Malone - Last Filed: 04/30/19 16:55> Imaging Data Chest x-ray: Radiologist's Impression: [address] [place] [id number] XRay Report Signed Patient: Nicholas White [facility]#: [id number] : 1970Acct:[id number] Age/Sex: 49 / MDate of Service: 04/30/19 Loc: ED Accession Number: [id number] Procedure: XR chest 2V Ordering Provider: Laura Eisenberg PROCEDURE: XR CHEST 2V INDICATIONS: sob, wheezing TECHNIQUE: 2 views of the chest were acquired. COMPARISON: [facility], CHEST 1 VIEW, 02/14/2014, 20:39. FINDINGS: Surgical changes and devices: None. Lungs and pleura: Lungs are clear. No pleural effusions or pneumothorax. Mediastinum: Mediastinal contours are normal. Heart size is normal. Bones and chest wall: No suspicious bony abnormalities. Soft tissues appear unremarkable. IMPRESSION: No acute cardiopulmonary pathology. Dictated by: Bao Campebll M.D. on 04/30/2019 at 15:36 Approved by: Bao Campbell M.D. on 04/30/2019 at 15:37 [facility] Narrative Medical decision making narrative: The patient is a 49-year-old male who presents with a chief complaint of severe wheezing. He has a history of asthma and was evaluated by respiratory therapist in the emergency department. He improved several nebs. Discussed with the patient reveals that he is not using a spacer at home, is using 1 albuterol puff at a time, does not have a nebulizer at home. He felt much improved after some nebulizers and a single dose of steroids in the emergency department. No bacterial pneumonia on x-ray. The patient declined any respiratory or viral testing during his stay here. He does not want to consider admission and wants to go home. I am okay with this as he does not have any fever chills muscle aches etcetera. He is also not hypoxic. He speaking in full sentences after the nebulizer treatments. I discussed at length for close follow-up with primary care provider, mitesh alexandra, gave prescription for refill of albuterol as well as nebulizer. Discussed that he can come back to the emergency department at any point if he feels significantly short of breath or has any acute concerns. Patient has no questions or concerns upon discharge and states understanding of return precautions as well as follow- up care. Discharge Plan Departure Patient Disposition: Home Clinical Impression: Asthma exacerbation Qualifiers: Asthma severity: unspecified severity Asthma persistence: unspecified Qualified Code(s): J45.901 - Unspecified asthma with (acute) exacerbation Discharge Date/Time: 04/30/19 17:01 Instructions: How to Use a Metered-Dose Inhaler, DI for Asthma -- Adult, How to Use a Nebulizer Activity Restrictions/Additional Instructions: Thank you for trusting us with your care today. Your x-ray shows no acute bacterial pneumonia However given your wheezing on exam we have placed you in a burst of steroids I have also given you a prescription of a nebulizer and a new albuterol inhaler. Please use the inhaler with spacer. Please use the nebulizers if needed. They can be used every 4-6 hours as needed. Please come back to emergency department for any acute concerns such as severe respiratory distress. Please follow-up with primary care provider in the next few days. Prescriptions: New albuterol sulfate 90 mcg/actuation HFA aerosol inhaler 2 puff INHALATION Q4-6H PRN (Reason: shortness of breath or wheezing) Qty: 18 RF: 0 prednisone 50 mg tablet 50 mg PO DAILY Qty: 4 RF: 0 (DME) nebulizer accessories Kit See Rx Instructions .ROUTE .MEDSUPPLY Qty: 1 RF: 0 ipratropium-albuterol 0.5 mg-3 mg(2.5 mg base)/3 mL solution for nebulization 3 ml INHALATION Q4-6H PRN (Reason: shortness of breath or wheezing) Qty: 15 RF: 0 (DME) nebulizers Misc See Rx Instructions .ROUTE .MEDSUPPLY Qty: 1 RF: 0 No Action Vicks DayQuil-NyQuil 10-5-325mg(d)/ 15-325-6.25mg capsule, sequential 1 cap PO DIRECTED PRN (Reason: Cold Symptoms) RF: 0 Symbicort 160-4.5 mcg/actuation HFA aerosol inhaler 2 puff INHALATION BID Qty: 10.2 RF: 4 naproxen 500 mg tablet 500 mg PO BID Qty: 30 RF: 0 lisinopril 10 mg tablet 15 mg PO DAILY Qty: 120 RF: 3 Referrals: Kip Brasher ARNP [Primary Care Provider] - Stand Alone Forms: Work/School Release
[2019-04-30] MEDS: ALBUTEROL 2.5 MG/3 ML NEB (ADULT) INH ×2 (14:42→14:59)
[2019-04-30 14:45] VITALS: PULSE 87; RESP 18; O2SAT 98
[2019-04-30] MEDS: ALBUTEROL/IPRATROPIUM 3 ML AMPUL INH ×2 (14:59→16:20)
[2019-04-30 15:00] VITALS: PULSE 78; RESP 14; O2SAT 96
[2019-04-30] MEDS: predniSONE 20 MG TABLET 60 MG PO (15:34)
[2019-04-30 16:22] VITALS: PULSE 81; RESP 14; O2SAT 97
[2019-04-30 17:00] VITALS: BP 149/67; PULSE 91; RESP 18; O2SAT 96
== END 2019-04-30 17:01 | disposition home or self-care (01) ==
PROVIDERS: Emergency Provider Nurse Practitioner Family; PCP Nurse Practitioner Family
DX: J45.901 Unspecified asthma with (acute) exacerbation (principal)
CPT/HCPCS: 71046; 94640; 99283; 99284; J7613

== ENCOUNTER → 2019-08-18 11:59 | Outpatient (CLI) | payer OTHER, SELFPAY ==
[2019-08-18 12:44] LABS: Hemoglobin 15.7 g/dL (13.5-17.5); Mean Corpuscular HGB Conc 34.9 % (30-36); Mean Corpuscular Hemoglobin 30.6 PG (26-34); Mean Corpuscular Volume 87.8 fL (80-100); Platelet Count 276 X10^3/uL (150-400); Red Blood Cell Count 5.12 X10^6/uL (4.5-5.9); Red Cell Distribution Width 13.4 % (11.6-14.8); White Blood Cell Count 10.7 X10^3/uL (4.5-11.0)
[2019-08-18 12:54] LABS: Alanine Aminotransferase 37 IU/L (<50); Albumin 4.4 g/dL (3.5-5.0); Albumin Globulin Ratio 1.3 (1.0-2.8); BUN Creatinine Ratio 15.6 (6-22); Bilirubin Total 0.5 mg/dL (0.2-1.3); Blood Urea Nitrogen 12 mg/dL (9-20); Calcium 9.4 mg/dL (8.4-10.2); Carbon Dioxide 26 mmol/L (22-32); Chloride 103 mmol/L (98-107); Cholesterol 242 mg/dL (140-199); Estimated Glomerular Filt Rate > 60.0 mL/min (>60); Globulin 3.5 g/dL (1.7-4.1); Glucose 91 mg/dL (70-100); HDL Cholesterol 32 mg/dL (40-60); HEMOLYSIS 55 (0-50); LDL Cholesterol Calculated 165 mg/dL (<100); Sodium 137 mmol/L (137-145); Total Protein 7.9 g/dL (6.3-8.2); Triglycerides 227 mg/dL (35-150)
[2019-08-18 12:55] LABS: Alkaline Phosphatase 129 U/L (38-126)
[2019-08-18 12:56] LABS: Aspartate Aminotransferase 36 IU/L (17-59)
[2019-08-18 13:44] LABS: Vitamin B12 573 pg/mL (239-931)
[2019-08-18 13:59] LABS: TSH w/ Reflex to FT4 2.53 uIU/mL (0.47-4.68)
[2019-08-25 06:36] LABS: Percent Free Testosterone 1.64 % (1.50-4.20); Testosterone Free 2.66 ng/dL (5.00-21.00); Testosterone Total 162.2 ng/dL (264.0-916.0)
== END ==
PROVIDERS: PCP Nurse Practitioner Family; Referring Provider Nurse Practitioner Family; Visit Provider Nurse Practitioner Family
DX: Z13.6 Encounter for screening for cardiovascular disorders (principal); J45.40 Moderate persistent asthma, uncomplicated; R53.83 Other fatigue; N52.9 Male erectile dysfunction, unspecified
CPT/HCPCS: 36415; 80053; 80061; 82607; 84402; 84403; 84443; 85027

== ENCOUNTER → 2019-09-03 09:28 | Outpatient (CLI) | payer SELFPAY ==
[2019-09-03 10:28] LABS: BUN Creatinine Ratio 16.7 (6-22); Blood Urea Nitrogen 14 mg/dL (9-20); Calcium 9.3 mg/dL (8.4-10.2); Carbon Dioxide 26 mmol/L (22-32); Chloride 102 mmol/L (98-107); Cholesterol 192 mg/dL (140-199); Estimated Glomerular Filt Rate > 60.0 mL/min (>60); Glucose 104 mg/dL (70-100); HDL Cholesterol 28 mg/dL (40-60); HEMOLYSIS < 15 (0-50); LDL Cholesterol Calculated 120 mg/dL (<100); Potassium 4.5 mmol/L (3.4-5.1); Sodium 137 mmol/L (137-145); Triglycerides 221 mg/dL (35-150)
[2019-09-03 10:45] LABS: Follicle Stimulating Hormone 1.36 mIU/mL; Luteinizing Hormone 1.56 mIU/mL
[2019-09-17 05:37] LABS: Testosterone Total 178.1 ng/dL (264.0-916.0)
== END ==
PROVIDERS: PCP Nurse Practitioner Family; Referring Provider Nurse Practitioner Family; Visit Provider Nurse Practitioner Family
DX: J45.40 Moderate persistent asthma, uncomplicated (principal); E78.2 Mixed hyperlipidemia; R79.89 Other specified abnormal findings of blood chemistry
CPT/HCPCS: 36415; 80048; 80061; 83001; 83002; 84402; 84403

== ENCOUNTER → 2020-03-22 18:11 | Outpatient (CLI) | payer OTHER, SELFPAY ==
--- NOTE | 2020-03-22 18:14 | DI.RAD.S_ITS ---
PROCEDURE: XR LUMBAR SPINE 2-3V INDICATIONS: lower back pain, heard a pop TECHNIQUE: 3 views of the lumbar spine were acquired. COMPARISON: None. FINDINGS: Bones: 5 lyk-aic-pdopprh vertebrae are present. There is normal bony alignment. Degenerative endplate changes are noted at L3-4 through L5-S1 levels with bilateral facet arthrosis. No vertebral body compression fractures. No suspicious bony lesions. Soft tissues: Overlying bowel gas pattern is normal. No suspicious soft tissue calcifications. IMPRESSION: Mild degenerative disc disease in mid to lower lumbar spine. No acute compression fracture or spondylolisthesis. Dictated by: Bao Campbell M.D. on 03/22/2020 at 17:27 Approved by: Bao Campbell M.D. on 03/22/2020 at 17:31
== END ==
PROVIDERS: PCP Nurse Practitioner Family; Referring Provider Nurse Practitioner; Visit Provider Nurse Practitioner
DX: S39.012A Strain of muscle, fascia and tendon of lower back, initial encounter (principal); M51.36 Other intervertebral disc degeneration, lumbar region; M51.37 Other intervertebral disc degeneration, lumbosacral region
CPT/HCPCS: 72100

== ENCOUNTER → 2020-04-19 11:03 | Outpatient (CLI) | payer OTHER, SELFPAY ==
[2020-04-19 11:29] LABS: COVID19 -Nasal RAPID Negative (Negative)
== END ==
PROVIDERS: PCP Nurse Practitioner Family; Visit Provider Nurse Practitioner Family
DX: Z20.822 Contact with and (suspected) exposure to COVID-19 (principal)
CPT/HCPCS: 87635

== ENCOUNTER 2020-05-25 10:58 | Emergency (ER) | payer OTHER, SELFPAY ==
[2020-05-25] VITALS (10 sets, daily range): BP systolic 115–154; BP diastolic 62–71; PULSE 71–85; RESP 18–19; TEMP 36.8; O2SAT 94–99; BMI 46.2
[2020-05-25 11:24] LABS: Alanine Aminotransferase 34 IU/L (<50); Albumin 4.1 g/dL (3.5-5.0); Albumin Globulin Ratio 1.2 (1.0-2.8); Alkaline Phosphatase 129 U/L (38-126); Aspartate Aminotransferase 34 IU/L (17-59); BUN Creatinine Ratio 18.2 (6-22); Bilirubin Total 0.4 mg/dL (0.2-1.3); Blood Urea Nitrogen 16 mg/dL (9-20); Calcium 8.7 mg/dL (8.4-10.2); Carbon Dioxide 26 mmol/L (22-32); Chloride 102 mmol/L (98-107); Estimated Glomerular Filt Rate > 60.0 mL/min (>60); Globulin 3.4 g/dL (1.7-4.1); Glucose 114 mg/dL (70-100); HEMOLYSIS 26 (0-50); Potassium 4.4 mmol/L (3.4-5.1); Sodium 137 mmol/L (137-145); Total Protein 7.5 g/dL (6.3-8.2)
[2020-05-25 11:31] LABS: Add Manual Diff / Slide Review NO; Basophils Absolute Auto 100 /uL (0-100); Basophils Percent Auto 0.6 % (0-2); Eosinophils Absolute Auto 700 /uL (0-450); Eosinophils Percent Auto 4.2 % (2-4); Hematocrit 43.4 % (41-53); Hemoglobin 14.7 g/dL (13.5-17.5); Lymphocytes Absolute Auto 2400 /uL (1100-4500); Lymphocytes Percent Auto 14.7 % (25-40); Mean Corpuscular HGB Conc 33.8 % (30-36); Mean Corpuscular Hemoglobin 29.8 PG (26-34); Mean Corpuscular Volume 88.2 fL (80-100); Monocytes Absolute Auto 1500 /uL (0-900); Monocytes Percent Auto 9.1 % (3-14); Neutrophils Absolute Auto 11700 /uL (1500-7000); Neutrophils Percent Auto 71.4 % (50-75); Platelet Count 281 X10^3/uL (150-400); Red Blood Cell Count 4.91 X10^6/uL (4.5-5.9); Red Cell Distribution Width 13.9 % (11.6-14.8); White Blood Cell Count 16.4 X10^3/uL (4.5-11.0)
[2020-05-25 11:35] LABS: Troponin I < 0.012 ng/mL (0.01-0.034)
[2020-05-25] MEDS: SODIUM CHLORIDE 0.9% 1,000 ML 150 ML IV (11:41)
--- NOTE | 2020-05-25 12:31 | ED.BACK ---
HPI - Back Pain/Injury General Chief Complaint: Back Pain/Injury Stated Complaint: severe lower back pain/dizzy/nausea today Time Seen by Provider: 05/25/20 12:16 Source: patient Mode of arrival: Ambulatory Limitations: no limitations History of Present Illness HPI Narrative: This is a 50-year-old male who comes in with complaint of last back pain/flank pain that started in the last day. It has been starting to radiate towards the front. Patient states he has had kidney stones in the past but this feels somewhat different. He also had a back injury several weeks ago but he states that was midline in his low back and this also feels different. He does not have radiation of pain down his legs. No new numbness, tingling or weakness. Has been afebrile at home he has felt nauseated but not had any emesis. He has also had some anorexia. Patient denies any new chest pain or shortness of breath. He denies any diarrhea or difficulty with bowel movements. He states he did have a bowel movement yesterday patient denies any dysuria, urgency frequency or hesitancy. He also denies any hematuria. He denies any rashes or skin changes but states that even movement of the short across his skin is painful. Patient states he did have rib fractures remotely so he does not like to lay on that side. Movement does seem to worsen his discomfort. Particularly sitting still for long periods makes him more uncomfortable. Patient states he is on medication for hypertension, dyslipidemia and asthma. Patient states he does have a history of kidney stones. He has been taking naproxen and a muscle relaxer for his back. He denies any prior surgeries. Denies any allergies to medications. He does have food allergies. No tobacco, rare alcohol, no illicit. Sees Kip Brasher for his primary care. Related Data Previous Rx's Medication Instructions Recorded nebulizers #1 each 04/30/19 fluticasone propionate 115 2 puff INHALATION BID #12 gram 08/18/19 mcg-salmeterol 21 mcg/actuation HFA inhaler lisinopril 10 mg tablet 15 mg PO DAILY #120 tab 08/18/19 rosuvastatin 10 mg tablet 10 mg PO DAILY #90 tab 03/07/20 cyclobenzaprine 10 mg tablet 10 mg PO BEDTIME PRN #60 tab 04/05/20 diclofenac sodium 1 % topical gel 2 g TOPICAL QID #100 g 04/05/20 naproxen 500 mg tablet 500 mg PO BID #60 tab 04/05/20 nebulizer accessories #1 each 04/05/20 prednisone 20 mg tablet 40 mg PO DAILY #10 tab 04/19/20 albuterol sulfate 90 mcg/actuation 2 puff INHALATION Q4-6H PRN #18 04/20/20 aerosol inhaler gram ipratropium 0.5 mg-albuterol 3 mg 3 ml INHALATION Q4-6H PRN #15 ml 04/20/20 (2.5 mg base)/3 mL nebulization soln hydrocodone-acetaminophen 1 tab PO Q6H PRN #14 tab 05/25/20 tamsulosin [Flomax] 0.4 mg PO DAILY #7 cap 05/25/20 Allergies Allergy/AdvReac Type Severity Reaction Status Date / Time tomato [TOMATO] Allergy Intermediate Verified 05/25/20 11:06 NUTS Allergy Intermediate Uncoded 04/19/20 10:19 Review of Systems Review of Systems ROS Unobtainable: All systems reviewed & are unremarkable except as noted in HPI and below Patient History Medical History Erectile dysfunction Essential hypertension with goal blood pressure less than 140/90 (05/06/15) Exacerbation of asthma Low testosterone in male Mild persistent asthma without complication (05/06/15) Mixed hyperlipidemia (07/2019) Moderate persistent asthma Surgical History No pertinent past surgical history Social History Smoking Status: Never smoker second hand exposure: Yes (daily at work) alcohol intake: current (Occasional) substance use type: does not use Smoking Status: Never smoker alcohol intake frequency: holidays/special occasions only Substance Use Type: does not use Exam Narrative Exam Narrative: GENERAL: Alert and oriented x three, male with a BMI of 46. Mild to moderate discomfort. Patient is lying on his right side. HEENT: Head normocephalic, atraumatic, EOMI, pupils reactive, face symmetric, moist mucous membranes NECK: Supple, full range of motion CARDIOVASCULAR: Regular rate and rhythm without murmurs, rubs or gallops. RESPIRATORY: Breath sounds equal bilaterally, no wheezes rales or rhonchi. ABDOMEN: Soft, positive for left lower quadrant tenderness. Normoactive bowel sounds all 4 quadrants. No guarding or rebound, rigidity, no mass : Positive for left CVA tenderness, no right CVA tenderness. BACK: No cervical, thoracic or lumbar vertebral point tenderness. EXTREMITIES: Normal range of motion, no clubbing or edema. Neurovascularly intact NEUROLOGICAL: Cranial nerves II through XII grossly intact. Moving all extremities SKIN: Warm, dry, no petechiae, no rashes or lesions, no vesicles noted. Patient does have several small erythematous spots on his right flank in a somewhat dermatomal pattern but these look more like inflamed follicles and patient is unsure if these are typically present or not. Initial Vital Signs Initial Vital Signs: Vital Signs Temperature 98.3 F 05/25/20 11:00 Pulse Rate 82 05/25/20 11:00 Respiratory Rate 19 05/25/20 11:00 Blood Pressure 154/71 H 05/25/20 11:00 Pulse Oximetry 96 05/25/20 11:00 Course Orders Ordered: Discontinued Medications Sodium Chloride (Normal Saline 0.9%) 1,000 mls @ 150 mls/hr IV CONT LIANA Last Infusion: 05/25/20 14:33 Dose: 0 mls/hr Documented by: Infusion: 05/25/20 13:00 Dose: 999 mls/hr Documented by: Admin: 05/25/20 11:41 Dose: 150 mls/hr Documented by: MARIMAR Sodium Chloride (Normal Saline 0.9%) 1,000 mls @ 1,000 mls/hr IV BOLUS ONE Stop: 05/25/20 13:49 Last Admin: 05/25/20 13:50 Dose: Not Given Documented by: MARIMAR Ketorolac Tromethamine (Ketorolac 60 Mg/2 Ml Vial) 15 mg IV NOW ONE Stop: 05/25/20 12:50 Last Admin: 05/25/20 13:03 Dose: 15 mg Documented by: ROGELIO Reevaluation(s) Reevaluation #1: Patient is feeling better. He has had a kidney stone in the past and has stone found on CT today. Plan to start Flomax, Broadway as needed but can start with Tylenol and ibuprofen. We did discuss he does not want to max out his Tylenol if he is taking Broadway he can only take 3000 mg of acetaminophen in 24 hours. Patient also given referral for Urology if his symptoms continue without improvement. We also reviewed his CT findings with pulmonary nodules that this would require follow-up. He has had secondary smoke exposure but does not smoke himself. No other known risk factors. Time: 14:50 Vital Signs Vital signs: Vital Signs - 8 hr 05/25/20 11:00 05/25/20 11:04 05/25/20 11:30 Temperature 98.3 F Pulse Rate 82 79 71 Respiratory Rate 19 Blood Pressure 154/71 H 154/71 H 129/63 Pulse Oximetry 96 97 94 05/25/20 12:00 05/25/20 12:30 05/25/20 13:02 Temperature Pulse Rate 79 74 85 Respiratory Rate Blood Pressure 117/62 115/62 Pulse Oximetry 94 95 99 05/25/20 13:03 05/25/20 13:30 05/25/20 14:00 Temperature Pulse Rate 84 72 84 Respiratory Rate Blood Pressure 129/66 Pulse Oximetry 98 98 95 MDM - Back Pain/Injury Lab Data Attestation: I reviewed the patient's lab results. Result diagrams: 05/25/20 11:00 05/25/20 11:00 Labs: Lab Results 05/25/20 05/25/20 05/25/20 Range/Units 11:00 11:00 11:00 WBC 16.4 H (4.5-11.0) X10^3/uL RBC 4.91 (4.5-5.9) X10^6/uL Hgb 14.7 (13.5-17.5) g/dL Hct 43.4 (41-53) % MCV 88.2 (80-100) fL MCH 29.8 (26-34) PG MCHC 33.8 (30-36) % RDW 13.9 (11.6-14.8) % Plt Count 281 (150-400) X10^3/uL Neut % (Auto) 71.4 (50-75) % Lymph % (Auto) 14.7 L (25-40) % [place] % (Auto) 9.1 (3-14) % Eos % (Auto) 4.2 H (2-4) % Baso % (Auto) 0.6 (0-2) % Neut # (Auto) 14836 H (5903-9030) /uL Lymph # (Auto) 2400 (9067-1293) /uL [place] # (Auto) 1500 H (0-900) /uL Eos # (Auto) 700 H (0-450) /uL Baso # (Auto) 100 (0-100) /uL Sodium 137 (137-145) mmol/L Potassium 4.4 (3.4-5.1) mmol/L Chloride 102 (98-107) mmol/L Carbon Dioxide 26 (22-32) mmol/L BUN 16 (9-20) mg/dL Creatinine 0.88 (0.66-1.25) mg/dL Estimated GFR > 60.0 (>60) mL/min BUN/Creatinine Ratio 18.2 (6-22) Glucose 114 H (70-100) mg/dL Calcium 8.7 (8.4-10.2) mg/dL Total Bilirubin 0.4 (0.2-1.3) mg/dL AST 34 (17-59) IU/L ALT 34 (<50) IU/L Alkaline Phosphatase 129 H (38-126) U/L Troponin I < 0.012 (0.01-0.034) ng/mL Total Protein 7.5 (6.3-8.2) g/dL Albumin 4.1 (3.5-5.0) g/dL Globulin 3.4 (1.7-4.1) g/dL Albumin/Globulin Ratio 1.2 (1.0-2.8) Lipase 64 (23-300) U/L Urine Color Urine Appearance Urine pH (4.5-8.0) Ur Specific [place] (1.000-1.035) Urine Protein (Negative) Urine Glucose (UA) (Negative) g/dL Urine Ketones (NEGATIVE) Urine Occult Blood (Negative) Urine Nitrate (Negative) Urine Bilirubin (NEGATIVE) Urine Urobilinogen (0.2) E.U./dL Ur Leukocyte Esterase (NEGATIVE) Urine RBC (0-5/HPF) Urine WBC (0-5/HPF) Urine Bacteria (None) Ur Culture Indicated? 05/25/20 Range/Units 13:30 WBC (4.5-11.0) X10^3/uL RBC (4.5-5.9) X10^6/uL Hgb (13.5-17.5) g/dL Hct (41-53) % MCV (80-100) fL MCH (26-34) PG MCHC (30-36) % RDW (11.6-14.8) % Plt Count (150-400) X10^3/uL Neut % (Auto) (50-75) % Lymph % (Auto) (25-40) % [place] % (Auto) (3-14) % Eos % (Auto) (2-4) % Baso % (Auto) (0-2) % Neut # (Auto) (5552-8106) /uL Lymph # (Auto) (7930-1256) /uL [place] # (Auto) (0-900) /uL Eos # (Auto) (0-450) /uL Baso # (Auto) (0-100) /uL Sodium (137-145) mmol/L Potassium (3.4-5.1) mmol/L Chloride (98-107) mmol/L Carbon Dioxide (22-32) mmol/L BUN (9-20) mg/dL Creatinine (0.66-1.25) mg/dL Estimated GFR (>60) mL/min BUN/Creatinine Ratio (6-22) Glucose (70-100) mg/dL Calcium (8.4-10.2) mg/dL Total Bilirubin (0.2-1.3) mg/dL AST (17-59) IU/L ALT (<50) IU/L Alkaline Phosphatase (38-126) U/L Troponin I (0.01-0.034) ng/mL Total Protein (6.3-8.2) g/dL Albumin (3.5-5.0) g/dL Globulin (1.7-4.1) g/dL Albumin/Globulin Ratio (1.0-2.8) Lipase (23-300) U/L Urine Color Yellow Urine Appearance Sl cloudy Urine pH 6.5 (4.5-8.0) Ur Specific [place] 1.020 (1.000-1.035) Urine Protein Trace H (Negative) Urine Glucose (UA) Trace H (Negative) g/dL Urine Ketones Negative (NEGATIVE) Urine Occult Blood 3+ H (Negative) Urine Nitrate Negative (Negative) Urine Bilirubin Negative (NEGATIVE) Urine Urobilinogen 0.2 (0.2) E.U./dL Ur Leukocyte Esterase Negative (NEGATIVE) Urine RBC 10-30/hpf H (0-5/HPF) Urine WBC 0-1/hpf (0-5/HPF) Urine Bacteria None seen (None) Ur Culture Indicated? Cult not indicated Imaging Data CT scan - abdomen/pelvis: Radiologist's Impression: [address] [id number] Scan ReportSigned Patient: Nicholas White SMR#: [id number]: 1970Acct:[id number]/Sex: 50 / MDate of Service: 05/25/20Loc: EDAccession Number: [id number] Procedure: CT abdomen pelvis w con Ordering Provider: Laura Warren D.O. PROCEDURE: CT ABDOMEN PELVIS W CON INDICATIONS: left flank/LLQ pain, stone vs diverticulitis? TECHNIQUE: After the administration of intravenous contrast, 5 mm thick sections acquired from the diaphragm to the symphysis. 5 mm coronal and sagittal reformats were acquired. For radiation dose reduction, the following was used: automated exposure control, adjustment of mA and/or kV according to patient size. COMPARISON: [facility], CT, KIDNEY/ URETER/BLADDER, 11/05/2014, 13:52. FINDINGS: Image quality: Excellent. ABDOMEN: Lung bases: A small nodule in the right middle lobe measures 5 mm in average diameter (image 6 of series 3). An additional 4 mm nodule is seen in the posterior right lower lobe (image 10 of series 3). Heart size is normal. Solid organs: Liver is normal in size and enhancement. Gallbladder appears normal. Biliary system is non dilated. Pancreas enhances normally. Spleen is normal in size and enhancement. No adrenal nodules. A 4 mm calculus is seen in the distal left ureter proximal to the ureterovesicular junction with mild left hydroureteronephrosis as well as periureteral and perinephric fat stranding. No right-sided hydronephrosis. A cyst is seen in the interpolar region of the left kidney. Kidneys demonstrate normal size and enhancement, without hydronephrosis. Peritoneum and bowel: Bowel loops demonstrate normal wall thickness and caliber. No free fluid or air. Nodes and vessels: No retroperitoneal or mesenteric adenopathy by size criteria. Aorta and inferior vena cava are normal in size. Miscellaneous: No ventral hernias. PELVIS: Genitourinary: Bladder wall thickness is normal. Miscellaneous: Increased fat is seen within the inguinal canals bilaterally without definite herniation of peritoneal fat, possibly representing lipomatous hypertrophy or spermatic cord lipoma. Bones: No suspicious bony lesions. No vertebral body compression fractures. IMPRESSION: 1. Left distal ureteral 4 mm calculus proximal to the ureterovesicular junction with mild hydroureteronephrosis and mild periureteral and perinephric fat stranding. 2. Two small 4-5 mm pulmonary nodules are incidentally noted in the included portion of the right lung that are most likely benign. Based on Fleischner Society guidelines, optional 12 month follow-up CT of the chest may be obtained if the patient is at an increased risk for lung cancer. Dictated by: Jon Ervin M.D. on 05/25/2020 at 13:08 Approved by: Jon Ervin M.D. on 05/25/2020 at 13:20 ECG Data Attestation: I personally reviewed and interpreted this ECG as follows: Prior ECG tracings: available for review Interpretation: Sinus rhythm first-degree AV block. Rate of 70 with WI interval 216, QRS 84 and QTC of 409. No ischemic changes noted. EKG appears similar. [facility] Narrative Medical decision making narrative: This is a 50-year-old male who comes to the emergency department with acute left-sided flank and abdominal pain. CT imaging was obtained with contrast is patient did have some pain with palpation particularly the left lower quadrant. Imaging notes a left distal ureteral 4 mm calculus with some mild hydroureteronephrosis and mild anila ureteral and nephric stranding. Patient creatinine has not significantly changed. He does have a leukocytosis but his urine is not suspicious for infection today. Patient does not have any other abdominal changes that are suspicion. Pulmonary nodules were noted and shared with patient and he is aware of follow-up. Patient states he had Broadway in the past and feels comfortable taking this. He is aware he can start with ibuprofen for initial pain control and add Broadway for breakthrough. Discharge Plan Departure Patient Disposition: Home Clinical Impression: Kidney stone on left side, Pulmonary nodule Instructions: DI for Kidney Stones Activity Restrictions/Additional Instructions: Follow up with Urology if you are not having any improvement in your symptoms. Referral for Urology has been given he may call tomorrow for an appointment. Take Flomax once daily until gone. Start this today. You may take ibuprofen up to 800 mg every 8 hours as needed for pain. You may take Broadway 1-2 tablets every 6 hours as needed for pain. Your maximum Tylenol dose is 3000 mg in 24 hours. Broadway can make you sleepy do not drive, perform hazardous activities or make any major decisions while taking it. Can also make you constipated to make sure to take a stool softener once or twice daily until soft and regular. Prescription to [facility] in [place] Please return for fevers, rapidly worsening abdominal, back or flank pain, lightheadedness or passing out, persistent vomiting, inability to urinate, black or bloody stools or other new or concerning symptoms. Prescriptions: New tamsulosin [Flomax] 0.4 mg capsule 0.4 mg PO DAILY Qty: 7 RF: 0 hydrocodone-acetaminophen 5-325 mg tablet 1 tab PO Q6H PRN (Reason: pain) Qty: 14 RF: 0 No Action rosuvastatin 10 mg tablet 10 mg PO DAILY Qty: 90 RF: 1 ipratropium-albuterol 0.5 mg-3 mg(2.5 mg base)/3 mL solution for nebulization 3 ml INHALATION Q4-6H PRN (Reason: shortness of breath or wheezing) Qty: 15 RF: 1 (DME) nebulizer accessories Kit See Rx Instructions .ROUTE .MEDSUPPLY Qty: 1 RF: 0 cyclobenzaprine 10 mg tablet 10 mg PO BEDTIME PRN (Reason: muscle spasm) Qty: 60 RF: 0 naproxen 500 mg tablet 500 mg PO BID Qty: 60 RF: 0 diclofenac sodium 1 % gel 2 g topical QID Qty: 100 RF: 0 Advair HFA 115-21 mcg/actuation HFA aerosol inhaler 2 puff INHALATION BID Qty: 12 RF: 3 lisinopril 10 mg tablet 15 mg PO DAILY Qty: 120 RF: 3 prednisone 20 mg tablet 40 mg PO DAILY Qty: 10 RF: 0 albuterol sulfate 90 mcg/actuation HFA aerosol inhaler 2 puff INHALATION Q4-6H PRN (Reason: shortness of breath or wheezing) Qty: 18 RF: 1 (DME) nebulizers Misc See Rx Instructions .ROUTE .MEDSUPPLY Qty: 1 RF: 0 Referrals: Kip Brasher ARNP [Primary Care Provider] - Princess Du MD [Physician] -
--- NOTE | 2020-05-25 13:02 | DI.CT.S_ITS ---
PROCEDURE: CT ABDOMEN PELVIS W CON INDICATIONS: left flank/LLQ pain, stone vs diverticulitis? TECHNIQUE: After the administration of intravenous contrast, 5 mm thick sections acquired from the diaphragm to the symphysis. 5 mm coronal and sagittal reformats were acquired. For radiation dose reduction, the following was used: automated exposure control, adjustment of mA and/or kV according to patient size. COMPARISON: [facility], CT, KIDNEY/ URETER/BLADDER, 11/05/2014, 13:52. FINDINGS: Image quality: Excellent. ABDOMEN: Lung bases: A small nodule in the right middle lobe measures 5 mm in average diameter (image 6 of series 3). An additional 4 mm nodule is seen in the posterior right lower lobe (image 10 of series 3). Heart size is normal. Solid organs: Liver is normal in size and enhancement. Gallbladder appears normal. Biliary system is non dilated. Pancreas enhances normally. Spleen is normal in size and enhancement. No adrenal nodules. A 4 mm calculus is seen in the distal left ureter proximal to the ureterovesicular junction with mild left hydroureteronephrosis as well as periureteral and perinephric fat stranding. No right-sided hydronephrosis. A cyst is seen in the interpolar region of the left kidney. Kidneys demonstrate normal size and enhancement, without hydronephrosis. Peritoneum and bowel: Bowel loops demonstrate normal wall thickness and caliber. No free fluid or air. Nodes and vessels: No retroperitoneal or mesenteric adenopathy by size criteria. Aorta and inferior vena cava are normal in size. Miscellaneous: No ventral hernias. PELVIS: Genitourinary: Bladder wall thickness is normal. Miscellaneous: Increased fat is seen within the inguinal canals bilaterally without definite herniation of peritoneal fat, possibly representing lipomatous hypertrophy or spermatic cord lipoma. Bones: No suspicious bony lesions. No vertebral body compression fractures. IMPRESSION: 1. Left distal ureteral 4 mm calculus proximal to the ureterovesicular junction with mild hydroureteronephrosis and mild periureteral and perinephric fat stranding. 2. Two small 4-5 mm pulmonary nodules are incidentally noted in the included portion of the right lung that are most likely benign. Based on Fleischner Society guidelines, optional 12 month follow-up CT of the chest may be obtained if the patient is at an increased risk for lung cancer. Dictated by: Jon Ervin M.D. on 05/25/2020 at 13:08 Approved by: Jon Ervin M.D. on 05/25/2020 at 13:20
[2020-05-25] MEDS: KETOROLAC 60 MG/2 ML VIAL 15 MG IV (13:03)
[2020-05-25 13:07] LABS: Lipase 64 U/L (23-300)
[2020-05-25 14:04] LABS: Appearance Urine UA SL CLOUDY; Bilirubin Urine UA NEGATIVE (NEGATIVE); Color Urine UA YELLOW; Glucose Urine UA TRACE g/dL (Negative); Ketones Urine UA NEGATIVE (NEGATIVE); Leukocyte Esterase Urine UA NEGATIVE (NEGATIVE); Nitrite Urine UA NEGATIVE (Negative); Occult Blood Urine UA 3+ (Negative); Protein Urine UA TRACE (Negative); Urobilinogen Urine UA 0.2 E.U./dL (0.2); pH Urine UA 6.5 (4.5-8.0)
[2020-05-25 14:06] LABS: Bacteria Urine None Seen
[2020-05-25 14:27] LABS: Culture Indicated Urine Cult Not Indicated; RBC Urine 10-30/HPF (0-5/HPF); WBC Urine 0-1/HPF (0-5/HPF)
== END 2020-05-25 15:09 | disposition home or self-care (01) ==
PROVIDERS: Emergency Provider Emergency Medicine; PCP Nurse Practitioner Family
DX: N20.0 Calculus of kidney (principal); R91.8 Other nonspecific abnormal finding of lung field
CPT/HCPCS: 36415; 74177; 80053; 81003; 81015; 83690; 84484; 85025; 93005; 96361; 96374; 99284; J1885

== ENCOUNTER → 2020-06-09 13:20 | Outpatient (CLI) | payer OTHER, SELFPAY ==
--- NOTE | 2020-06-09 13:21 | DI.CT.S_ITS ---
PROCEDURE: CT CHEST WO CON INDICATIONS: Pulmonary nodule monitoring, right lung TECHNIQUE: Noncontrast 2.0-2.5 mm thick sections acquired from the pulmonary apices to the posterior costophrenic angles. 7 mm thick axial MIP and 5 mm coronal and sagittal reformats were then acquired. A low radiation dose technique was utilized. COMPARISON: [facility], CT, CT ABDOMEN PELVIS W CON, 05/25/2020, 12:54. FINDINGS: Image quality: Diagnostic, given the low radiation dose technique. Lungs and pleura: The original CT was performed only several days ago, 05/25/20 and was an abdominal/pelvic CT with incidental finding of 2 small nodules at the right lung base. This current study represents a baseline evaluation for follow-up. Please note that follow-up utilizing the Fleischner min society criteria for solid pulmonary nodules depends on risk factors, which should be assessed clinically. The following multiple small nodules are present: Left-side series 3, image 56 lateral 2 mm nodule. Right-side 3/96 2 mm lateral nodule Right-side 3/106 3 mm lateral nodule. Right-side 3/196 6 mm lateral nodule, the largest nodule requiring follow-up. Right-side 3/239 4 mm lateral nodule Mediastinum: Heart size is normal. No pericardial effusion. No mediastinal adenopathy by size criteria. Thoracic aorta and central pulmonary arteries are normal in size. Esophagus is normal in caliber. No hiatal hernia. Bones and chest wall: No suspicious bony lesions. No vertebral body compression fractures. No axillary or supraclavicular adenopathy by size criteria. Thyroid gland appears normal where well seen. Abdomen: Visualized upper abdomen solid organs and bowel loops appear normal in the absence of contrast. At 6-12 months, and then 18-24 months as an optional or recommended follow-up depending on the risk status. IMPRESSION: 5 separate pulmonary nodules are seen. Please correlate clinically for low risk versus high risk patient which is cysts in establishing frequency of follow-up. The largest nodule found is present at the right lower lung measuring 6 mm, with recommendation for follow-up Fleischner Society criteria for SOLID lung nodule followup. Nodule size (mm)Low-risk patientHigh-risk patient<6 (single or multiple)No routine followup.Optional CT at 12 months. 6-8 (single or multiple)CT at 6-12 months, then optional CT at 18-24 mo.CT at 6-12 months, then CT at 18-24 months. >8 (single)CT at 3 months, PET-CT, or biopsy. Same as for low-risk pts. >8 (multiple)CT at 3-6 months, then optional CT at 18-24 mo.CT at 3-6 months, then CT at 18-24 months. Dictated by: Jabier Burdick M.D. on 06/09/2020 at 17:40 Approved by: Jabier Burdick M.D. on 06/09/2020 at 17:50
== END ==
PROVIDERS: PCP Nurse Practitioner Family; Referring Provider Nurse Practitioner Family; Visit Provider Nurse Practitioner Family
DX: R91.8 Other nonspecific abnormal finding of lung field (principal)
CPT/HCPCS: 71250

== ENCOUNTER → 2020-09-14 14:46 | Outpatient (CLI) | payer OTHER, SELFPAY ==
[2020-09-14 19:09] LABS: Appearance Urine UA CLOUDY; Bilirubin Urine UA NEGATIVE (NEGATIVE); Color Urine UA YELLOW; Glucose Urine UA NEGATIVE (Negative); Ketones Urine UA NEGATIVE (NEGATIVE); Leukocyte Esterase Urine UA NEGATIVE (NEGATIVE); Nitrite Urine UA NEGATIVE (Negative); Occult Blood Urine UA TRACE-LYSED (Negative); Protein Urine UA NEGATIVE (Negative); Specific Gravity Urine UA 1.025 (1.000-1.035); Urobilinogen Urine UA 0.2 E.U./dL (0.2); pH Urine UA 5.5 (4.5-8.0)
== END ==
PROVIDERS: PCP Nurse Practitioner Family; Visit Provider Nurse Practitioner Family
DX: R32 Unspecified urinary incontinence (principal)
CPT/HCPCS: 81003

== ENCOUNTER → 2020-09-14 14:47 | Outpatient (CLI) | payer OTHER, SELFPAY ==
[2020-09-14 15:22] LABS: Hematocrit 43.3 % (41-53); Hemoglobin 14.4 g/dL (13.5-17.5); Mean Corpuscular HGB Conc 33.3 % (30-36); Mean Corpuscular Hemoglobin 29.8 PG (26-34); Mean Corpuscular Volume 89.5 fL (80-100); Platelet Count 301 X10^3/uL (150-400); Red Blood Cell Count 4.83 X10^6/uL (4.5-5.9); Red Cell Distribution Width 14.3 % (11.6-14.8); White Blood Cell Count 9.4 X10^3/uL (4.5-11.0)
[2020-09-14 16:07] LABS: Alanine Aminotransferase 28 IU/L (<50); Albumin 4.2 g/dL (3.5-5.0); Albumin Globulin Ratio 1.2 (1.0-2.8); Alkaline Phosphatase 124 U/L (38-126); Aspartate Aminotransferase 32 IU/L (17-59); BUN Creatinine Ratio 14.6 (6-22); Bilirubin Total 0.5 mg/dL (0.2-1.3); Blood Urea Nitrogen 12 mg/dL (9-20); Calcium 9.3 mg/dL (8.4-10.2); Carbon Dioxide 27 mmol/L (22-32); Chloride 104 mmol/L (98-107); Cholesterol 168 mg/dL (140-199); Estimated Glomerular Filt Rate > 60.0 mL/min (>60); Globulin 3.6 g/dL (1.7-4.1); Glucose 92 mg/dL (70-100); HDL Cholesterol 30 mg/dL (40-60); HEMOLYSIS < 15 (0-50); LDL Cholesterol Calculated 106 mg/dL (<100); Potassium 4.4 mmol/L (3.4-5.1); Sodium 139 mmol/L (137-145); Total Protein 7.8 g/dL (6.3-8.2); Triglycerides 161 mg/dL (35-150)
[2020-09-22 10:58] LABS: Percent Free Testosterone 2.69 % (1.50-4.20); Testosterone Free 4.31 ng/dL (5.00-21.00); Testosterone Total 160.2 ng/dL (264.0-916.0)
== END ==
PROVIDERS: PCP Nurse Practitioner Family; Referring Provider Nurse Practitioner Family; Visit Provider Nurse Practitioner Family
DX: Z00.00 Encounter for general adult medical examination without abnormal findings (principal); J45.40 Moderate persistent asthma, uncomplicated; E78.2 Mixed hyperlipidemia; R79.89 Other specified abnormal findings of blood chemistry; R32 Unspecified urinary incontinence
CPT/HCPCS: 36415; 80053; 80061; 81003; 84402; 84403; 85027

== ENCOUNTER → 2021-03-02 13:28 | Outpatient (CLI) | payer OTHER, SELFPAY ==
[2021-03-02 14:45] LABS: COVID19 -Nasal RAPID POSITIVE (Negative)
== END ==
PROVIDERS: PCP Nurse Practitioner Family; Referring Provider Nurse Practitioner Family; Visit Provider Nurse Practitioner Family
DX: U07.1 COVID-19; Z20.822 Contact with and (suspected) exposure to COVID-19
CPT/HCPCS: 87635

== ENCOUNTER → 2021-05-15 14:35 | Outpatient (CLI) | payer OTHER, SELFPAY ==
--- NOTE | 2021-05-15 14:36 | DI.RAD.S_ITS ---
PROCEDURE: XR FOOT LT MIN 3V INDICATIONS: possible broken toe TECHNIQUE: 3 views of the foot were acquired. COMPARISON: None. FINDINGS: Bones: Minimal irregularity at the 3rd digit proximal phalangeal shaft. No acute fractures or dislocations. No suspicious bony lesions. Soft tissues: No tibiotalar joint effusion. Achilles tendon appears normal. IMPRESSION: Possible prior fracture at the 3rd digit proximal phalanx. Dictated by: Grao Fernando M.D. on 05/15/2021 at 14:54 Approved by: Garo Fernando M.D. on 05/15/2021 at 14:58
== END ==
PROVIDERS: PCP Nurse Practitioner Family; Referring Provider Student in an Organized Health Care Education/Training Program; Visit Provider Student in an Organized Health Care Education/Training Program
DX: M79.672 Pain in left foot (principal); M79.89 Other specified soft tissue disorders
CPT/HCPCS: 73630

== ENCOUNTER → 2021-12-01 08:32 | Outpatient (CLI) | payer OTHER, SELFPAY ==
[2021-12-01 09:53] LABS: Add Manual Diff / Slide Review NO; Basophils Absolute Auto 100 /uL (0-100); Eosinophils Absolute Auto 500 /uL (0-450); Eosinophils Percent Auto 5.4 % (2-4); Hematocrit 40.3 % (41-53); Lymphocytes Absolute Auto 2400 /uL (1100-4500); Lymphocytes Percent Auto 27.7 % (25-40); Mean Corpuscular HGB Conc 34.8 % (30-36); Mean Corpuscular Volume 86.3 fL (80-100); Monocytes Absolute Auto 700 /uL (0-900); Neutrophils Absolute Auto 5000 /uL (1500-7000); Neutrophils Percent Auto 57.9 % (50-75); Platelet Count 273 X10^3/uL (150-400); Red Blood Cell Count 4.67 X10^6/uL (4.5-5.9); Red Cell Distribution Width 14.2 % (11.6-14.8); White Blood Cell Count 8.6 X10^3/uL (4.5-11.0)
[2021-12-01 10:02] LABS: Alanine Aminotransferase 20 IU/L (<50); Albumin Globulin Ratio 1.1 (1.0-2.8); Alkaline Phosphatase 118 U/L (38-126); Aspartate Aminotransferase 22 IU/L (17-59); BUN Creatinine Ratio 12.9 (6-22); Bilirubin Total 0.5 mg/dL (0.2-1.3); Blood Urea Nitrogen 11 mg/dL (9-20); Calcium 8.4 mg/dL (8.4-10.2); Carbon Dioxide 25 mmol/L (22-32); Chloride 101 mmol/L (98-107); Cholesterol 160 mg/dL (140-199); Estimated Glomerular Filt Rate > 60 mL/min (>60); Globulin 3.7 g/dL (1.7-4.1); Glucose 100 mg/dL (70-100); HDL Cholesterol 25 mg/dL (40-60); HEMOLYSIS < 15 (0-50); LDL Cholesterol Calculated 106 mg/dL (<100); Sodium 138 mmol/L (137-145); Total Protein 7.7 g/dL (6.3-8.2); Triglycerides 147 mg/dL (35-150)
[2021-12-01 10:29] LABS: Prostate Specific Antigen Scrn 2.07 ng/mL (0.1-4.0)
[2021-12-01 10:37] LABS: TSH w/ Reflex to FT4 4.33 uIU/mL (0.47-4.68)
== END ==
PROVIDERS: PCP Family Medicine; Referring Provider Family Medicine; Visit Provider Family Medicine
DX: E78.2 Mixed hyperlipidemia (principal); I10 Essential (primary) hypertension; J45.40 Moderate persistent asthma, uncomplicated; Z12.5 Encounter for screening for malignant neoplasm of prostate
CPT/HCPCS: 36415; 80053; 80061; 84443; 85025; G0103

== ENCOUNTER → 2023-06-03 13:35 | Outpatient (CLI) | payer OTHER, SELFPAY ==
[2023-06-03 14:48] LABS: Influenza A - CEPHEID Flu A NEGATIVE (NEGATIVE); Influenza B - CEPHEID Flu B NEGATIVE (NEGATIVE); Respiratory Syncytial Virus Negative (Negative)
[2023-06-03 14:49] LABS: COVID-19 CEPHEID 4-PLEX PCR Negative (Negative)
== END ==
PROVIDERS: PCP Family Medicine; Visit Provider Registered Nurse
DX: R06.02 Shortness of breath (principal)
CPT/HCPCS: 0241U

== ENCOUNTER → 2023-06-03 13:53 | Outpatient (CLI) | payer OTHER, SELFPAY ==
--- NOTE | 2023-06-03 13:54 | DI.RAD.S_ITS ---
PROCEDURE: XR CHEST 2V INDICATIONS: Shortness of breath TECHNIQUE: 2 views of the chest were acquired. COMPARISON: [facility], CR, XR CHEST 2V, 04/30/2019, 14:17. FINDINGS: Surgical changes and devices: None. Lungs and pleura: Lungs are clear. No pleural effusions or pneumothorax. Mediastinum: Mediastinal contours are normal. Heart size is normal. Bones and chest wall: No suspicious bony abnormalities. Soft tissues appear unremarkable. IMPRESSION: No acute cardiopulmonary abnormality is seen. Approved by: Jon Ervin M.D. on 06/03/2023 at 15:05
== END ==
LOC: RAD 13:53
PROVIDERS: PCP Family Medicine; Referring Provider Registered Nurse; Visit Provider Registered Nurse
DX: R06.02 Shortness of breath (principal)
CPT/HCPCS: 0241U; 71046

== ENCOUNTER 2023-06-09 10:08 | Emergency (ER) | payer OTHER, SELFPAY ==
[2023-06-09 10:18] VITALS: BP 139/79; PULSE 79; RESP 20; TEMP 36.7; O2SAT 95; BMI 46.2
--- NOTE | 2023-06-09 10:22 | ED.URI ---
HPI - URI/Sore Throat General Chief Complaint: Upper Respiratory Symptoms Stated Complaint: cough/congest/headache Time Seen by Provider: 06/09/23 10:14 History of Present Illness HPI Narrative: Patient seen walk-in clinic June 03, 2023 for respiratory symptoms. Patient has history asthma. Is on albuterol inhaler as well as a nebulizer. Five day course steroids given and patient still not feeling better. No antibiotics were started. X-ray at that time no acute finding. 4 pack respiratory panel done and was negative. Vital signs reviewed. Patient in no respiratory distress. Audible wheezing noted. here is registering in for the same complaints. Related Data Previous Rx's Medication Instructions Recorded nebulizer accessories #1 ea 09/14/20 nebulizer and compressor (Vios #1 ea 03/02/21 Aerosol Delivery System) ipratropium 0.5 mg-albuterol 3 mg 3 ml inhalation Q4-6H PRN 09/29/21 (2.5 mg base)/3 mL nebulization shortness of breath or wheezing soln #1,620 mL rosuvastatin 10 mg tablet See Rx Instructions .Route 12/07/22 .COMPLEX #30 tabs albuterol sulfate 90 mcg/actuation 2 puff PO Q4-6H PRN for wheezing 05/10/23 aerosol inhaler #8.5 grams lisinopril 20 1 tab PO DAILY #90 tabs 05/10/23 mg-hydrochlorothiazide 25 mg tablet Breo Ellipta 100 mcg-25 mcg/dose 1 inh inhalation DAILY #28 ea 06/04/23 powder for inhalation (fluticasone furoate-vilanterol) amoxicillin 875 mg-potassium 1 tab PO BID #14 tabs 06/09/23 clavulanate 125 mg tablet benzonatate 100 mg capsule 100 mg PO TID PRN cough #20 caps 06/09/23 doxycycline monohydrate 100 mg 100 mg PO BID #14 caps 06/09/23 capsule Allergies Allergy/AdvReac Type Severity Reaction Status Date / Time tomato [TOMATO] Allergy Intermediate Verified 06/03/23 13:16 NUTS Allergy Intermediate Uncoded 06/03/23 13:16 Review of Systems Review of Systems Narrative: GENERAL: negative chills, fatigue, malaise, fever, sweats. HEENT: negative sinus pain, ear pain, sore throat positive congestion RESPIRATORY: Positive dyspnea, cough CARDIOVASCULAR: negative chest pain, palpitations GASTROINTESTINAL: negative nausea, vomiting, abdominal pain : negative dysuria, frequency, hematuria MUSCULOSKELETAL: negative muscle or bony pain SKIN: negative rash, skin lesions NEUROLOGIC: negative weakness, numbness ROS Unobtainable: All systems reviewed & are unremarkable except as noted in HPI and below Patient History Medical History Left wrist pain Vision disorder Asthma (~1994) Tinnitus (~1997) Hearing loss (~1997) Kidney stones (~2004) Sleep apnea (~2020) Incontinence Pulmonary nodules Exacerbation of asthma Erectile dysfunction Low testosterone in male (~2017) Mixed hyperlipidemia (07/2019) Moderate persistent asthma Essential hypertension with goal blood pressure less than 140/90 (05/06/15) Mild persistent asthma without complication (05/06/15) Surgical History No pertinent past surgical history Social History Smoking Status: Never smoker second hand exposure: Yes (daily at work) alcohol intake: current substance use type: does not use Smoking Status: Never smoker alcohol intake frequency: holidays/special occasions only Substance Use Type: does not use Exam Narrative Exam Narrative: GENERAL: in no distress, not toxic not dyspneic HEAD: Normocephalic. EYES: Pupils equal round ENT: Mucous membranes moist. NECK: Trachea midline. CARDIOVASCULAR: Regular rate and rhythm RESPIRATORY: Patient in no respiratory distress. Speaking full sentences. There is bilateral basilar wheezing and rhonchi. GASTROINTESTINAL: Abdomen soft, non-tender EXTREMITIES: No gross deformities. BACK: No flank tenderness. NEURO: AOx4. SKIN: Warm and dry PSYCH: Not anxious, is cooperative Initial Vital Signs Initial Vital Signs: Vital Signs Temperature 98.0 F 06/09/23 10:18 Pulse Rate 79 06/09/23 10:18 Respiratory Rate 20 06/09/23 10:18 Blood Pressure 139/79 06/09/23 10:18 Pulse Oximetry 95 06/09/23 10:18 Oxygen Delivery Method Room Air 06/09/23 10:18 Course Orders Ordered: ED Orders 06/09/23 10:21 XR chest 1V Stat Respiratory Panel (Film Array) Stat Discontinued Medications Albuterol/Ipratropium (Albuterol/Ipratropium 3 Ml Ampul) 3 ml INH NOW ONE Stop: 06/09/23 10:22 Last Admin: 06/09/23 10:26 Dose: 3 ml Documented By: COCO Amoxicillin/Clavulanate Potassium (Amoxicillin/Clav 875/125 Mg) 1 tab PO NOW ONE Stop: 06/09/23 10:27 Last Admin: 06/09/23 10:41 Dose: 1 tab Documented By: KARISSA Benzonatate (Benzonatate 100 Mg Capsule) 200 mg PO NOW ONE Stop: 06/09/23 10:22 Last Admin: 06/09/23 10:41 Dose: 200 mg Documented By: KARISSA Doxycycline Hyclate (Doxycycline Hyclate 100 Mg Tablet) 100 mg PO NOW ONE Stop: 06/09/23 10:27 Last Admin: 06/09/23 10:41 Dose: 100 mg Documented By: KARISSA Ibuprofen (Ibuprofen 400 Mg Tablet) 800 mg PO NOW ONE Stop: 06/09/23 10:27 Last Admin: 06/09/23 10:41 Dose: 800 mg Documented By: KARISSA Vital Signs Vital signs: Vital Signs - 8 hr 06/09/23 10:18 06/09/23 10:27 06/09/23 12:15 Temperature 98.0 F Pulse Rate 79 73 80 Respiratory Rate 20 18 20 Blood Pressure 139/79 127/60 Pulse Oximetry 95 93 93 Oxygen Delivery Method Room Air Room Air MDM - URI/Sore Throat Lab Data Labs: Lab Results 06/09/23 Range/Units 10:21 Chlamy pneumoniae PCR Not detected (Not Detect) Adenovirus (PCR) Not detected (Not Detect) B.parapertussis DNA PCR Not detected (Not Detecte) Coronavirus OC43 (PCR) Not detected (Not Detect) Coronavirus HKU1 (PCR) Not detected (Not Detect) Coronavirus 229E (PCR) Not detected (Not Detect) SARS-CoV-2 (PCR) Not detected (Not Detecte) Coronavirus NL63 (PCR) Not detected (Not Detect) Human Metapneumovir PCR Not detected (Not Detect) Influenza Type A (PCR) Not detected (Not Detect) Influenza Type B (PCR) Not detected (Not Detect) M. pneumoniae (PCR) Not detected (Not Detect) Parainfluenza 1 (PCR) Not detected (Not Detect) Parainfluenza 2 (PCR) Not detected (Not Detect) Parainfluenza 3 (PCR) Detected H (Not Detect) Parainfluenza 4 (PCR) Not detected (Not Detect) RSV (PCR) Not detected (Not Detect) Entero/Rhino (PCR) Not detected (Not Detect) Imaging Data Chest x-ray: Radiologist's Impression: [address] [address] XRay Report Signed Patient: Nicholas White MR#: [id number] : 1970 Acct:[id number] Age/Sex: 53 / M Date of Service: 06/09/23 Loc: ED Accession Number: [id number] Procedure: XR chest 1V Ordering Provider: Js Arizmendi MD PROCEDURE: XR CHEST 1V INDICATIONS: Cough/wheezing TECHNIQUE: One view of the chest was acquired. COMPARISON: [facility], , XR CHEST 2V, 06/03/2023, 14:02. FINDINGS: Surgical changes and devices: None. Lungs and pleura: Lungs are clear. No pleural effusions or pneumothorax. Mediastinum: Mediastinal contours appear normal. Heart size is normal. Bones and chest wall: No suspicious bony lesions. Overlying soft tissues appear unremarkable. IMPRESSION: No acute cardiopulmonary abnormality is seen. Dictated by: Js Gonzalez M.D. on 06/09/2023 at 10:34 Approved by: Js Gonzalez M.D. on 06/09/2023 at 10:35 [facility] Narrative Medical decision making narrative: Patient seen walk-in clinic June 03, 2023 for respiratory symptoms. Patient has history asthma. Is on albuterol inhaler as well as a nebulizer. Five day course steroids given and patient still not feeling better. No antibiotics were started. X-ray at that time no acute finding. 4 pack respiratory panel done and was negative. Vital signs reviewed. Patient in no respiratory distress. Audible wheezing noted. here is registering in for the same complaints. After history and exam chest x-ray DuoNeb Augmentin doxycycline Nolberto Ramirez [facility] Medical records reviewed: June 03, 2023 walk-in clinic notes and x-ray and nasal swab Differential considered: Includes but not limited to COVID rhino virus parainfluenza virus RSV influenza adenovirus bronchitis pneumonia asthma exacerbation Lab Test results independently reviewed as above. Pertinent findings: Respiratory panel positive parainfluenza Imaging studies independently reviewed: Chest x-ray no acute finding Consultations: None indicated at this time Treatments: DuoNeb Augmentin Tessalon Perle doxycycline ibuprofen Re-evaluations: 10:30 a.m.. Patient complains of headache. Ibuprofen ordered. 11:27 a.m.. Patient feeling much better. Decreased wheezing and rhonchi. Decreased coughing. Reviewed with patient and results. Treating clinic for pneumonia. He is parainfluenza virus positive but given symptoms that is protracted, appropriate for antibiotics. He agrees with treatment plan. He does have family doctor to follow up with. Reviewed with patient could be concomitant bacterial pneumonia infection and antibiotics to be started Discussion: Appropriate to treat for clinical pneumonia. Patient feeling much better time of discharge. Return precautions reviewed. Not toxic or dyspneic or requiring supplemental oxygen. He agrees with treatment plan antibiotics and cough medication. He does have asthma medications at home. Not toxic or dyspneic at discharge. He desires discharge home. Diagnosis: Parainfluenza/community-acquired pneumonia asthma exacerbation Discharge Plan Departure Patient Disposition: Home Clinical Impression: Parainfluenza virus infection Community acquired pneumonia Qualifiers: Laterality: unspecified laterality Qualified Code(s): J18.9 - Pneumonia, unspecified organism Asthma exacerbation Qualifiers: Asthma severity: mild Asthma persistence: unspecified Qualified Code(s): J45.901 - Unspecified asthma with (acute) exacerbation Instructions: DI for Asthma -- Adult, DI for Viral Upper Respiratory Infection -- Adult, DI for Atypical Pneumonia Activity Restrictions/Additional Instructions: Please continue your home asthma medications. See your family doctor this week for re-evaluation. Prescription antibiotics and cough medication has been sent to your pharmacy to continue today. You do have viral infection with parainfluenza, however likely have associated bacterial infection and antibiotics have been started. Please return if worse if any questions or concerns or if any trouble breathing. Prescriptions: New benzonatate 100 mg capsule 100 mg PO TID PRN (Reason: cough) Qty: 20 0RF doxycycline monohydrate 100 mg capsule 100 mg PO BID Qty: 14 0RF amoxicillin-pot clavulanate 875-125 mg tablet 1 tab PO BID Qty: 14 0RF No Action (DME) nebulizer and compressor [hiyalifeos Aerosol Delivery System] Device See Rx Instructions .ROUTE .COMPLEX Qty: 1 0RF Dose Instruction: USE DIRECTED Rx Instructions: USE DIRECTED ipratropium-albuterol 0.5 mg-3 mg(2.5 mg base)/3 mL solution for nebulization 3 ml INHALATION Q4-6H PRN (Reason: shortness of breath or wheezing) Qty: 1620 3RF rosuvastatin 10 mg tablet See Rx Instructions .ROUTE .COMPLEX Qty: 30 0RF Dose Instruction: TAKE 1 TABLET BY MOUTH DAILY Rx Instructions: TAKE 1 TABLET BY MOUTH DAILY DUE FOR APPT AND LABS 12/07/22 albuterol sulfate 90 mcg/actuation HFA aerosol inhaler 2 puff PO Q4-6H PRN (Reason: for wheezing) Qty: 8.5 3RF fluticasone furoate-vilanterol [Breo Ellipta] 100-25 mcg/dose blister with device 1 inh inhalation DAILY Qty: 28 3RF (DME) nebulizer accessories Kit See Rx Instructions .ROUTE .MEDSUPPLY Qty: 1 0RF Rx Instructions: As directed lisinopril-hydrochlorothiazide 20-25 mg tablet 1 tab PO DAILY Qty: 90 3RF Referrals: Dat Bae, DO [Primary Care Provider] - Stand Alone Forms: Patient Portal/API, Work Release Note
[2023-06-09] MEDS: ALBUTEROL/IPRATROPIUM 3 ML AMPUL INH (10:26)
[2023-06-09 10:27] VITALS: PULSE 73; RESP 18; O2SAT 93
[2023-06-09] MEDS: IBUPROFEN 400 MG TABLET 800 MG PO (10:41)
[2023-06-09] MEDS: AMOXICILLIN/CLAV 875/125 MG 1 TAB PO (10:41)
[2023-06-09] MEDS: DOXYCYCLINE HYCLATE 100 MG TABLET PO (10:41)
[2023-06-09] MEDS: BENZONATATE 100 MG CAPSULE 200 MG PO (10:41)
[2023-06-09 11:16] LABS: Adenovirus Not Detected (Not Detect); B. parapertussis Not Detected (Not Detecte); Bordetella pertussis Not Detected (Not Detect); Chlamydophila pneumoniae Not Detected (Not Detect); Coronavirus 229E Not Detected (Not Detect); Coronavirus HKU1 Not Detected (Not Detect); Coronavirus NL 63 Not Detected (Not Detect); Coronavirus OC43 Not Detected (Not Detect); Human Metapneumovirus Not Detected (Not Detect); Human Rhinovirus/Enterovirus Not Detected (Not Detect); Influenza A Not Detected (Not Detect); Influenza B Not Detected (Not Detect); Mycoplasma pneumoniae Not Detected (Not Detect); Parainfluenza Virus 1 Not Detected (Not Detect); Parainfluenza Virus 2 Not Detected (Not Detect); Parainfluenza Virus 3 Detected (Not Detect); Parainfluenza Virus 4 Not Detected (Not Detect); Respiratory Syncytial Virus Not Detected (Not Detect); SARS- CoV-2 Not Detected (Not Detecte)
--- NOTE | 2023-06-09 11:24 | PC.NURSE ---
Dr. Arizmendi at bedside with patient and family
[2023-06-09 12:15] VITALS: BP 127/60; PULSE 80; RESP 20; O2SAT 93
== END 2023-06-09 11:56 | disposition home or self-care (01) ==
PROVIDERS: Emergency Provider Emergency Medicine; PCP Family Medicine
DX: J12.2 Parainfluenza virus pneumonia (principal); J45.901 Unspecified asthma with (acute) exacerbation
CPT/HCPCS: 71045; 87633; 94640; 99283

== ENCOUNTER 2023-12-10 18:31 | Emergency (ER) | payer OTHER, SELFPAY ==
[2023-12-10 18:42] VITALS: BP 170/85; PULSE 87; RESP 16; TEMP 37; O2SAT 97; BMI 47.5
--- NOTE | 2023-12-10 18:55 | ED.BACK ---
HPI - Back Pain/Injury General Chief Complaint: Back Pain/Injury Stated Complaint: lower back pain Time Seen by Provider: 12/10/23 18:37 Source: patient Mode of arrival: Ambulatory Limitations: no limitations History of Present Illness HPI Narrative: 53-year-old male who has a longstanding history occasional lower back discomfort. States that he very infrequently uses medications for the back discomfort but does use a heating pad quite a bit. He states that his noticed when he got out of the shower this evening that he had bruising to his lower back. He states that his back discomfort today is not any worse than what it has been in the past. No specific trauma. Has not tried anything for the symptoms prior to arrival. Related Data Previous Rx's Medication Instructions Recorded nebulizer accessories #1 ea 09/14/20 nebulizer and compressor (Vios #1 ea 03/02/21 Aerosol Delivery System) albuterol sulfate 90 mcg/actuation 2 puff PO Q4-6H PRN for wheezing 05/10/23 aerosol inhaler #8.5 grams lisinopril 20 1 tab PO DAILY #90 tabs 05/10/23 mg-hydrochlorothiazide 25 mg tablet ipratropium 0.5 mg-albuterol 3 mg 3 ml inhalation Q4-6H PRN 06/11/23 (2.5 mg base)/3 mL nebulization shortness of breath or wheezing soln #1,620 mL fluticasone 250 mcg-salmeterol 50 1 ea PO BID #60 ea 10/16/23 mcg/dose blistr powdr for inhalation (Wixela Inhub) rosuvastatin 10 mg tablet See Rx Instructions .Route 11/14/23 .COMPLEX #90 tabs Allergies Allergy/AdvReac Type Severity Reaction Status Date / Time tomato [TOMATO] Allergy Intermediate Verified 07/12/23 14:14 NUTS Allergy Intermediate Uncoded 07/12/23 14:14 Review of Systems Musculoskeletal Musculoskeletal: Reports system reviewed and no additional complaints, except as documented Integumentary/Breasts Skin/Breast: Reports system reviewed and no additional complaints, except as documented Patient History Medical History Left wrist pain Vision disorder Asthma (~1994) Tinnitus (~1997) Hearing loss (~1997) Kidney stones (~2004) Sleep apnea (~2020) Incontinence Pulmonary nodules Exacerbation of asthma Erectile dysfunction Low testosterone in male (~2017) Mixed hyperlipidemia (07/2019) Moderate persistent asthma Essential hypertension with goal blood pressure less than 140/90 (05/06/15) Mild persistent asthma without complication (05/06/15) Surgical History No pertinent past surgical history Social History Smoking Status: Never smoker second hand exposure: Yes (daily at work) alcohol intake: current substance use type: does not use Smoking Status: Never smoker alcohol intake frequency: holidays/special occasions only Substance Use Type: does not use Exam Initial Vital Signs Initial Vital Signs: Vital Signs Temperature 98.6 F 12/10/23 18:42 Pulse Rate 87 12/10/23 18:42 Respiratory Rate 16 12/10/23 18:42 Blood Pressure 170/85 H 12/10/23 18:42 Pulse Oximetry 97 12/10/23 18:42 Oxygen Delivery Method Room Air 12/10/23 18:42 Back/Spine/Pelvis Thoracic/Lumbar Spine: No paraspinal tenderness and No lumbar spinal tenderness Skin Other: Patient does darkening of the skin to his lower back. No vesicles. No pustules. There was no erythema concerning for cellulitis. Minimally tender to palpation. Course Orders Ordered: ED Orders 12/10/23 18:50 Ictotest Urine Stat Urine Microscopic Stat 12/10/23 18:58 CT abdomen pelvis w con Stat 12/10/23 19:10 Complete Blood Count AUTO DIFF Stat Comprehensive Metabolic Panel Stat Lipase Stat Vital Signs Vital signs: Vital Signs - 8 hr 12/10/23 18:42 12/10/23 20:35 12/10/23 20:35 Temperature 98.6 F Pulse Rate 87 87 Respiratory Rate 16 Blood Pressure 170/85 H 174/77 H Pulse Oximetry 97 95 Oxygen Delivery Method Room Air MDM - Back Pain/Injury Lab Data Attestation: I reviewed the patient's lab results. 12/10/23 19:10 12/10/23 19:10 Labs: Lab Results 12/10/23 12/10/23 Range/Units 18:50 19:10 WBC 10.1 (4.5-11.0) X10^3/uL RBC 4.96 (4.5-5.9) X10^6/uL Hgb 14.2 (13.5-17.5) g/dL Hct 42.6 (41-53) % MCV 85.8 (80-100) fL MCH 28.6 (26-34) PG MCHC 33.4 (30-36) % RDW 14.8 (11.6-14.8) % Plt Count 308 (150-400) X10^3/uL Neut % (Auto) 66.2 (50-75) % Lymph % (Auto) 23.6 L (25-40) % [place] % (Auto) 6.2 (3-14) % Eos % (Auto) 2.6 (2-4) % Baso % (Auto) 1.4 (0-2) % Neut # (Auto) 6700 (9602-7204) /uL Lymph # (Auto) 2400 (6618-5954) /uL [place] # (Auto) 600 (0-900) /uL Eos # (Auto) 300 (0-450) /uL Baso # (Auto) 100 (0-100) /uL Sodium 136 L (137-145) mmol/L Potassium 3.9 (3.4-5.1) mmol/L Chloride 102 (98-107) mmol/L Carbon Dioxide 26 (22-32) mmol/L BUN 11 (9-20) mg/dL Creatinine 0.85 (0.66-1.25) mg/dL Estimated GFR > 60 (>60) mL/min BUN/Creatinine Ratio 12.9 (6-22) Glucose 114 H (70-100) mg/dL Calcium 8.9 (8.4-10.2) mg/dL Total Bilirubin 0.6 (0.2-1.3) mg/dL AST 24 (17-59) IU/L ALT 19 (<50) IU/L Alkaline Phosphatase 122 (38-126) U/L Total Protein 7.8 (6.3-8.2) g/dL Albumin 4.2 (3.5-5.0) g/dL Globulin 3.6 (1.7-4.1) g/dL Albumin/Globulin Ratio 1.2 (1.0-2.8) Lipase 81 (23-300) U/L Ur Bilirubin Confirm Negative (Negative) Urine RBC 0-1/hpf D (0-5/HPF) Urine WBC 0-1/hpf (0-5/HPF) Ur Squamous Epith Cells 10-30 /hpf H (0-5/HPF) Urine Bacteria Occasional (0-1) (None) Urine Mucus 3+ H (Negative) Ur Culture Indicated? Cult not indicated Vol Urine Centrifuged 10ml (spun) Urine Dip Bedside Urine Glucose Negative Bedside Urine Bilirubin + 1 Bedside Urine Ketone +/- [address] 1.025 Bedside Urine Occult Blood - Negative Bedside Urine pH 5.5 Bedside Urine Protein +/- 15 Bedside Urine Urobilinogen - Negative Bedside Urine Nitrite - Negative Bedside Urine Leukocytes +/- [address] scan - abdomen/pelvis: Radiologist's Impression: PROCEDURE: CT ABDOMEN PELVIS W CON INDICATIONS: Lower back bruising without trauma eval for retroperitoneal TECHNIQUE: After the administration of intravenous contrast, axial sections acquired from the lung bases to the pubic symphysis. Coronal and sagittal reformats were performed. For radiation dose reduction, the following was used: automated exposure control, adjustment of mA and/or kV according to patient size. COMPARISON: [facility], CT, CT ABDOMEN PELVIS W [facility], 05/25/2020, 12:54. FINDINGS: Image quality: Diagnostic. Lower Chest: 4-5 mm nodules are seen in the right middle and lower lobes that appear unchanged when compared to the CT from 05/25/2020 and are considered benign. ABDOMEN: Liver: No solid mass. Gallbladder: No radiopaque gallstones or wall thickening. Biliary ducts: No biliary dilation. Pancreas: No ductal dilation. Spleen: Size is within normal limits. Adrenal Glands: No adrenal nodules. Kidneys and Ureters: No hydronephrosis. No solid mass. No complex renal cystic lesion which requires follow up. Stable benign left renal cyst. Stomach and Bowel: Scattered diverticula are seen in the colon without signs of acute diverticulitis. Small bowel loops and stomach are unremarkable. Normal appendix. Peritoneum: No abnormal intraperitoneal fluid. No free air. Ventral Wall: Areas of mild nonspecific subcutaneous edema are seen, most prominent at the right lateral lower abdominal wall. No focal hyperdense hematoma is seen. Abdominal Nodes: No retroperitoneal or mesenteric adenopathy by size criteria. Vessels: Aorta and inferior vena cava are normal in size. PELVIS: Pelvic Organs: Unremarkable. Bladder: No bladder wall thickening, accounting for underdistention. Pelvic Nodes: No enlarged lymph nodes. Miscellaneous: Bilateral fat containing inguinal hernias. Bones: No aggressive osseous abnormality. IMPRESSION: 1. No acute osseous fracture. No acute abnormality identified in the abdomen or pelvis. No retroperitoneal hematoma. 2. Colonic diverticulosis without signs of acute diverticulitis. MDM Narrative Medical decision making narrative: He does have skin discoloration to his lower back which in the setting of trauma would be very consistent with bruising/hematoma. It was not tender to palpation. It is not consistent with cellulitis. This could be skin reaction secondary to the use of the heating pad however this would also be the appearance of someone who has a retroperitoneal bleed. Had a discussion with him regarding options to include not doing any imaging studies or lab work and having him discontinue the use of the heating pad to see if his symptoms improve or obtaining a CT scan for further evaluation. We discussed the risks and benefits of both of these and after this discussion the patient opted of the CT scan. Subsequent CT scan is unremarkable. This is reassuring. A points more towards a reaction to the heating pad. I discussed this with him. We discussed return precautions and follow-up instructions. He expressed understanding and agreement with plan Discharge Plan Departure Patient Disposition: Home Clinical Impression: Lower back pain Instructions: DI for Low Back Pain Activity Restrictions/Additional Instructions: Continue to take all of your medications as directed. Like we discussed that would recommend avoiding putting anything on your lower back to see whether or not the skin discoloration resolves. Return to the emergency department for new symptoms. Prescriptions: No Action (DME) nebulizer and compressor [Vios Aerosol Delivery System] Device See Rx Instructions .ROUTE .COMPLEX Qty: 1 0RF Dose Instruction: USE DIRECTED Rx Instructions: USE DIRECTED albuterol sulfate 90 mcg/actuation HFA aerosol inhaler 2 puff PO Q4-6H PRN (Reason: for wheezing) Qty: 8.5 3RF ipratropium-albuterol 0.5 mg-3 mg(2.5 mg base)/3 mL solution for nebulization 3 ml INHALATION Q4-6H PRN (Reason: shortness of breath or wheezing) Qty: 1620 3RF fluticasone propion-salmeterol [Wixela Inhub] 250-50 mcg/dose blister with device 1 ea PO BID Qty: 60 3RF rosuvastatin 10 mg tablet See Rx Instructions .ROUTE .COMPLEX Qty: 90 3RF Dose Instruction: TAKE 1 TABLET BY MOUTH DAILY Rx Instructions: TAKE 1 TABLET BY MOUTH DAILY (DME) nebulizer accessories Kit See Rx Instructions .ROUTE .MEDSUPPLY Qty: 1 0RF Rx Instructions: As directed lisinopril-hydrochlorothiazide 20-25 mg tablet 1 tab PO DAILY Qty: 90 3RF Referrals: Dat Bae, [Primary Care Provider] - Stand Alone Forms: Patient Portal/API
--- NOTE | 2023-12-10 18:58 | DI.CT.S_ITS ---
PROCEDURE: CT ABDOMEN PELVIS W CON INDICATIONS: Lower back bruising without trauma eval for retroperitoneal TECHNIQUE: After the administration of intravenous contrast, axial sections acquired from the lung bases to the pubic symphysis. Coronal and sagittal reformats were performed. For radiation dose reduction, the following was used: automated exposure control, adjustment of mA and/or kV according to patient size. COMPARISON: [facility], CT, CT ABDOMEN PELVIS W CON, 05/25/2020, 12:54. FINDINGS: Image quality: Diagnostic. Lower Chest: 4-5 mm nodules are seen in the right middle and lower lobes that appear unchanged when compared to the CT from 05/25/2020 and are considered benign. ABDOMEN: Liver: No solid mass. Gallbladder: No radiopaque gallstones or wall thickening. Biliary ducts: No biliary dilation. Pancreas: No ductal dilation. Spleen: Size is within normal limits. Adrenal Glands: No adrenal nodules. Kidneys and Ureters: No hydronephrosis. No solid mass. No complex renal cystic lesion which requires follow up. Stable benign left renal cyst. Stomach and Bowel: Scattered diverticula are seen in the colon without signs of acute diverticulitis. Small bowel loops and stomach are unremarkable. Normal appendix. Peritoneum: No abnormal intraperitoneal fluid. No free air. Ventral Wall: Areas of mild nonspecific subcutaneous edema are seen, most prominent at the right lateral lower abdominal wall. No focal hyperdense hematoma is seen. Abdominal Nodes: No retroperitoneal or mesenteric adenopathy by size criteria. Vessels: Aorta and inferior vena cava are normal in size. PELVIS: Pelvic Organs: Unremarkable. Bladder: No bladder wall thickening, accounting for underdistention. Pelvic Nodes: No enlarged lymph nodes. Miscellaneous: Bilateral fat containing inguinal hernias. Bones: No aggressive osseous abnormality. IMPRESSION: 1. No acute osseous fracture. No acute abnormality identified in the abdomen or pelvis. No retroperitoneal hematoma. 2. Colonic diverticulosis without signs of acute diverticulitis. Approved by: Jon Ervin M.D. on 12/10/2023 at 20:15
[2023-12-10 19:13] LABS: Bacteria Urine Occasional (0-1); Culture Indicated Urine Cult Not Indicated; Mucus Urine 3+ (Negative); RBC Urine 0-1/HPF (0-5/HPF); Squamous Epithelial Cell Urine 10-30 /HPF (0-5/HPF); Urine Volume 10mL (spun); WBC Urine 0-1/HPF (0-5/HPF)
[2023-12-10 19:14] LABS: Ictotest Urine Negative (Negative)
[2023-12-10 19:17] LABS: Add Manual Diff / Slide Review NO; Basophils Absolute Auto 100 /uL (0-100); Basophils Percent Auto 1.4 % (0-2); Eosinophils Absolute Auto 300 /uL (0-450); Eosinophils Percent Auto 2.6 % (2-4); Hematocrit 42.6 % (41-53); Hemoglobin 14.2 g/dL (13.5-17.5); Lymphocytes Absolute Auto 2400 /uL (1100-4500); Lymphocytes Percent Auto 23.6 % (25-40); Mean Corpuscular HGB Conc 33.4 % (30-36); Mean Corpuscular Hemoglobin 28.6 PG (26-34); Mean Corpuscular Volume 85.8 fL (80-100); Monocytes Absolute Auto 600 /uL (0-900); Monocytes Percent Auto 6.2 % (3-14); Neutrophils Absolute Auto 6700 /uL (1500-7000); Neutrophils Percent Auto 66.2 % (50-75); Platelet Count 308 X10^3/uL (150-400); Red Blood Cell Count 4.96 X10^6/uL (4.5-5.9); Red Cell Distribution Width 14.8 % (11.6-14.8); White Blood Cell Count 10.1 X10^3/uL (4.5-11.0)
[2023-12-10 19:37] LABS: Alanine Aminotransferase 19 IU/L (<50); Albumin 4.2 g/dL (3.5-5.0); Albumin Globulin Ratio 1.2 (1.0-2.8); Alkaline Phosphatase 122 U/L (38-126); Aspartate Aminotransferase 24 IU/L (17-59); BUN Creatinine Ratio 12.9 (6-22); Bilirubin Total 0.6 mg/dL (0.2-1.3); Blood Urea Nitrogen 11 mg/dL (9-20); Calcium 8.9 mg/dL (8.4-10.2); Carbon Dioxide 26 mmol/L (22-32); Chloride 102 mmol/L (98-107); Estimated Glomerular Filt Rate > 60 mL/min (>60); Globulin 3.6 g/dL (1.7-4.1); Glucose 114 mg/dL (70-100); HEMOLYSIS 19 (0-50); Lipase 81 U/L (23-300); Potassium 3.9 mmol/L (3.4-5.1); Sodium 136 mmol/L (137-145); Total Protein 7.8 g/dL (6.3-8.2)
[2023-12-10 20:35] VITALS: BP 174/77; PULSE 87; O2SAT 95
== END 2023-12-10 20:38 | disposition home or self-care (01) ==
PROVIDERS: Emergency Provider Emergency Medicine; PCP Family Medicine
DX: M54.50 Low back pain, unspecified (principal); Z79.899 Other long term (current) drug therapy
CPT/HCPCS: 36415; 74177; 80053; 81003; 81015; 83690; 85025; 99284; Q9967

== ENCOUNTER → 2024-02-26 12:40 | Outpatient (CLI) | payer OTHER, SELFPAY ==
--- NOTE | 2024-02-28 14:03 | DIET.CONS ---
Dietary Consultation Note Admission Date: Assessment: Ht: Wt: BMI: UBW: Last BM: () MNA: Luke Score: Nutrition Diagnosis: Interventions: EER: Monitoring/Evaluations: Electronically Signed by: Pinky Matute 02/28/24 14:03 Clinical Dietitian [address] [address]
--- NOTE | 2024-02-28 14:04 | DIET.OUTPTC ---
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 No normal breaks, eat when can. Pt does physical exerting activity the last 2 hours of his shift and avoid eating after midnight to avoid discomfort. Is really hungry when comes home from work. Pt has recently stopped drinking soda. Was doing mellow yellow >1 per day. Hasn't had soda in 1 month. Does light lemonade at work. Unsure brand. Diet recall: B (noon-3p)-2-4 hashbrowns in the airfryer with dab of gutierrez grease on them, 4 eggs, sausage Snack 3-4 hr later chips 1 quart bag/day /packaged pb crackers Lunch-packed cheese, plain crackers, deli slices sometimes fruit or carrots OR salads with meat and veg and croutons Dinner-meat, instant potatoes, canned veggies Fluids: EtOH occasionally (1-3 drinks/month), coffee in morning 1-2 c with 1-3 tsp sugar, 2-3 16 oz water, light lemonade from work 64 oz A1c-5.6% Ht: 6 ft 2 in Wt: 367 lb 4 oz BMI: 47.1 UBW: x Nutrition Diagnosis: Food and nutrition related knowledge deficit r/t needing nutrition reccs/no previous formal nutrition educ aeb pt reports/assessment Interventions: Discussed and provided appropriate resources on the following: -Balanced meals and macronutrients with use of myplate method and portion sizing -Hunger/fullness to help guide meal times, meal schedule with 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 -Label reading -Sugar sweetened beverages -Brainstormed reasonable meal/snack ideas -Lab (A1c) results reviewed Goals: -1 quart bag chips reduced to 1 sandwich bag, include other balanced snack options -Check brand on light lemonade and check nutrition facts for added sugars, suspect the brand is minute maid with 16 g added sugar per 64 oz, can work to reduced added sugar by having other 32 oz cup filled with plain water to reduce to 8 g added sugars -portion size of instant mashed potatoes at dinner to 1 or 1 and 1/3 cup (3-4 CHO servings) and vegetable serving Monitoring/Evaluations: f/u 6-8 wks Electronically Signed by: Pinky Matute 02/28/24 14:04 Clinical Dietitian [address] [address]
== END ==
PROVIDERS: PCP Family Medicine; Referring Provider Family Medicine
DX: R73.03 Prediabetes (principal); M54.50 Low back pain, unspecified; G89.29 Other chronic pain; Z68.41 Body mass index [BMI] 40.0-44.9, adult
CPT/HCPCS: 97802

== ENCOUNTER 2024-11-30 10:51 | Day surgery (SDC) | payer OTHER, SELFPAY ==
[2024-11-30] VITALS (8 sets, daily range): BP systolic 135–183; BP diastolic 68–98; PULSE 66–94; RESP 13–21; TEMP 36.2–36.8; O2SAT 91–98
--- NOTE | 2024-11-30 | PATH_ITS ---
[facility] Accession Number: [id number] No. of containers..01 Tissue . 01 Material submitted: . colon - SPLENIC FLEXURE POLYP . 01 Diagnosis: A: COLON, SPLENIC FLEXURE, POLYPECTOMY: Tubular adenoma. [facility] 12/09/2024 1217 Local . 01 Electronically signed: . Shira Farah MD, Pathologist NPI- [id number] . 01 Gross description: . Received one formalin-filled container, labeled with the patient's name, labeled polyp splenic fiexure are multiple fragments of zuleta, soft tissue and/or debris which range in size from less than 0.1 cm to 0.3 x 0.3 x 0.2 cm All fragments are totally submitted in one cassette. ([facility] [place]:[id number]) /MRV 12/08/2024 0330 Local . 01 Pathologist provided ICD-10: Z12.11 . 01 CPT . 497253 Specimen Comment: A courtesy copy of this report has been sent to [phone] Performed at: [address] [facility] [address], [place], [place] [id number] MD Segundo Pagan MD Phone: [phone]
[2024-11-30] MEDS: LACTATED RINGERS 1,000 ML 42 ML IV (11:39)
--- NOTE | 2024-11-30 11:57 | P.HP_ITS ---
History of Present Illness History of Present Illness Date Patient Seen: 11/30/24 Chief complaint: SDC Narrative: First colorectal cancer screening [facility] Medical History Left wrist pain Vision disorder Asthma (~1994) Tinnitus (~1997) Hearing loss (~1997) Kidney stones (~2004) Sleep apnea (~2020) Incontinence Pulmonary nodules Exacerbation of asthma Erectile dysfunction Low testosterone in male (~2017) Mixed hyperlipidemia (07/2019) Moderate persistent asthma Essential hypertension with goal blood pressure less than 140/90 (05/06/15) Mild persistent asthma without complication (05/06/15) Surgical History No pertinent past surgical history Social History Smoking Status: Never smoker second hand exposure: Yes (daily at work) alcohol intake: current substance use type: does not use Meds Home Medications and Allergies Home Medications ?Medication ?Instructions ?Recorded ?Confirmed ?Type nebulizer accessories #1 ea 09/14/20 12/24/23 Rx nebulizer and compressor (Vios #1 ea 03/02/21 12/24/23 Rx Aerosol Delivery System) rosuvastatin 10 mg tablet See Rx Instructions .Route 0 11/14/23 11/30/24 Rx .COMPLEX #90 tabs lisinopril 20 1 tab PO DAILY #90 tabs /07/1211/30/24 Rx mg-hydrochlorothiazide 25 mg tablet ipratropium 0.5 mg-albuterol 3 mg 3 ml inhalation Q4-6 H PRN 07/06/24 11/30/24 Rx (2.5 mg base)/3 mL nebulization shortness of breath or wheezing soln #1,620 mL albuterol sulfate 90 mcg/actuation 2 puff PO Q4-6H PRN for wheezing 09/24/24 11/30/24 Rx aerosol inhaler #6.7 grams fluticasone 250 mcg-salmeterol 50 1 ea PO BID #60 ea 0 09/24/24 11/30/24 Rx mcg/dose blistr powdr for inhalation (Wixela Inhub) Allergies Allergy/AdvReac Type Severity Reaction Status Date / Time tomato (TOMATO) Allergy Intermediate Verified 11/30/24 11:37 Exam Vital Signs (past 8 hours): - 11/30/24 11:40 Temperature 97.1 F L Pulse Rate 75 Respiratory Rate 20 Blood Pressure 152/98 H Pulse Oximetry 97 Oxygen Delivery Method Room Air Oxygen Delivery Method Room Air Narrative Exam Narrative: Oropharynx free of lesion Assessment & Plan Assessment & Plan narrative: First colorectal cancer screening. Risks, benefits, alternatives have been explained. Time-Based Coding :: [TOTAL MINUTES] spent with patient and on the chart (including review of chart, obtaining history, exam, reviewing outside data, placing orders, documenting exam and treatment plan, and counseling patient) on [DATE]. [employer]EE Ship [employer]er Document charge(s): No
--- NOTE | 2024-11-30 11:58 | PM.OP.COLON ---
Operative Date/Time/Diagnoses Date of procedure: 11/30/24 Time of procedure: 12:35 Pre-op diagnosis: See indication and findings Post-op diagnosis: same Procedure & Clinicians Study performed: Colonoscopy Same procedure(s) as scheduled: Yes Indications: 1st screening Surgeon: Rosangela Aly Anesthesia Type: Other Procedure Notes Procedure in detail: After informed consent was obtained the patient was placed in left lateral decubitus position. The video colonoscope was introduced the rectum slowly advanced cecum. Preparation was good. On slow withdrawal mucosa was carefully examined. The scope was removed. The patient tolerated procedure well. Blood loss none Complications none Sedation mac Findings 1. 8 mm polyp at the splenic flexure cold snared and removed completely 2. Otherwise negative colonoscopy to cecum Patient needs follow-up colonoscopy in 5 years. Scope withdrawal time: After informed consent
== END 2024-11-30 13:23 | disposition home or self-care (01) ==
PROVIDERS: PCP Family Medicine; Referring Provider Internal Medicine Gastroenterology; Visit Provider Internal Medicine Gastroenterology
PROC: 0DJD8ZZ Inspection of Lower Intestinal Tract, Via Natural or Artificial Opening Endoscopic (ICD-10-PCS; CPT 45378; principal; 2024-11-30 12:30)
DX: Z12.11 Encounter for screening for malignant neoplasm of colon (principal); D12.3 Benign neoplasm of transverse colon
CPT/HCPCS: 45385; J2704; J7120